=== PATIENT | male | born 1960 | race Two or more races ===

== ENCOUNTER 2025-02-23 13:52 | Inpatient (IN) | payer MEDICAID, SELFPAY ==
[2025-02-23 14:24] VITALS: BP 155/77; PULSE 81; RESP 20; TEMP 37.3; O2SAT 95
--- NOTE | 2025-02-23 15:10 | EDRME_ITS ---
Rapid Medical Screening Exam RME Arrival date/time: 02/23/25 13:52 Chief Complaint: Abdominal Pain Time Seen by Provider: 02/23/25 14:28 Vital signs: Vital Signs Temperature 99.1 F 02/23/25 14:24 Pulse Rate 81 02/23/25 14:24 Respiratory Rate 20 02/23/25 14:24 Blood Pressure 155/77 H 02/23/25 14:24 Pulse Oximetry (%) 95 02/23/25 14:24 Oxygen Delivery Method Room Air 02/23/25 14:24 [facility] Narrative: 64-year-old patient presents emergency department with complaint of left lower abdominal pain for the past year but have worsened in the last 2 days. He denies fever or chills he reports nausea but no vomiting. Moderately distended abdomen noted.
--- NOTE | 2025-02-23 15:12 | XR_ITS ---
Examination: CT abdomen and pelvis without contrast. Coronal 3-D reconstructions. Sagittal 2-D reconstructions. Date and time of exam:February 23, 2025, 1708 hours Comparison August 17, 2022 INDICATIONS: Left lower abdominal pain nausea and vomiting beginning 2 days ago CTDI: vol (mGy): 6.55 DLP: (mGycm): 394 Technique: Axial images of the abdomen have been obtained, 3 mm slice thickness Intravenous contrast material has not been administered. Low dose protocols were performed. One or more of the following dose reduction techniques were used; automated exposure control, adjustment of the mA and/or KV according to patient size, use of iterative reconstruction technique. Findings: Atelectasis versus mild pneumonia right base Cirrhosis, liver nodular in contour Moderate ascites Mild splenomegaly Esophageal varices Retrocardiac gastric hernia Portosystemic collateral vessels medial to the spleen No pancreatic mass Gallbladder is poorly visualized No hydronephrosis Aorta normal size Anasarca No bowel obstruction Normal appendix Urinary bladder wall thickening up to 7 mm Fluid-containing inguinal hernias Moderate osteopenia IMPRESSION: Atelectasis versus pneumonia right base Cirrhosis Moderate ascites Esophageal varices No bowel obstruction Fluid-containing bilateral inguinal hernias
[2025-02-23 16:13] LABS: Basophils # (Auto) 0.0 Thou/mm3 (0.0-0.2); Basophils % (Auto) 0 % (0-2.5); Eosinophils # (Auto) 0.1 Thou/mm3 (0.0-0.5); Eosinophils % (Auto) 2 % (0-10); Hematocrit 37.9 % (41.0-53.0); Hemoglobin 13.0 g/dL (13.5-16.0); Immature Granulocytes Auto 0.03 Thou/mm3 (0.00-0.00); Lymphocytes # (Auto) 1.1 Thou/mm3 (1.0-4.8); Lymphocytes % (Auto) 15 % (10-50); Mean Corpuscular HGB Conc 34.3 g/dl (31.0-37.0); Mean Corpuscular Hemoglobin 36.5 pg (25.0-35.0); Mean Corpuscular Volume 107 fL (80-100); Monocytes # (Auto) 0.6 Thou/mm3 (0.0-0.8); Monocytes % (Auto) 8 % (0-12); Neutrophils # (Auto) 5.4 Thou/mm3 (1.8-7.7); Neutrophils % (Auto) 75 % (37-80); Nucleated Red Blood Cell # 0.00 Thou/mm3 (0.00-0.00); Nucleated Red Blood Cell % 0 /100 WBC (0); RDW Standard Deviation 69.2 fL (35.1-43.9); Red Blood Count 3.56 Miln/mm3 (4.50-5.90); White Blood Count 7.2 Thou/mm3 (3.8-10.6)
[2025-02-23 16:26] LABS: INR 1.9 (0.9-1.3); Prothrombin Time 19.9 Seconds (9.0-12.2)
[2025-02-23 16:36] LABS: Alanine Aminotransferase 41 U/L (10-49); Albumin, Serum 2.3 gm/dL (3.4-4.8); Albumin/Globulin Ratio 0.4 (1.2-2.2); Alkaline Phosphatase 181 U/L (46-116); Anion Gap 6 (7-16); Aspartate Amino Transferase 116 U/L (0-34); BUN/Creatinine Ratio 8 Ratio (12-20); Bilirubin,Total 11.0 mg/dL (0.3-1.2); Blood Urea Nitrogen 6 mg/dL (9-23); Calcium 7.7 mg/dL (8.3-10.6); Calcium (Corrected) 9.1 mg/dL (8.5-10.1); Carbon Dioxide 25.3 mMol/L (20.0-31.0); Chloride 104 mMol/L (98-107); Creatinine (Component) 0.8 mg/dL (0.6-1.3); Globulin 5.4 gm/dL (2.3-3.5); Glucose 134 mg/dL (74-106); Lipase 32 U/L (12-53); Osmolality,Calculated 269 (275-295); Potassium 4.1 mMol/L (3.4-5.1); Sodium 135 mMol/L (136-145); Total Protein 7.7 gm/dL (5.7-8.2); eGFR > 60 See Note
[2025-02-23 16:47] LABS: Platelet Count 39 Thou/mm3 (140-440)
[2025-02-23 16:51] LABS: Path Review Blood Smear Sent to Pathologist; Slide Review Platelets confirmed
[2025-02-23 17:32] LABS: Collection Type, Urine Voided; RBC,Urine 0 /hpf (0-3)
[2025-02-23 17:59] LABS: Bacteria,Urine Rare; Bilirubin,Urine 2+ (Negative); Blood,Urine Negative (Negative); Clarity,Urine Turbid (Clear/Hazy); Color,Urine Drk-Yellow (Lt Yel-Yel); Culture Indicated,Urine Not Indicated; Glucose, Urine Negative (Negative); Ketones,Urine Negative (Negative); Leukocyte Esterase,Urine Negative (Negative); Nitrite,Urine Negative (Negative); PH,Urine 6.5 (5.0-7.0); Protein,Urine Negative (Neg - Trace); Specific Gravity,Urine 1.020 (1.001-1.035); Squamous Epithelial Cell,Urine 1 /hpf (0-5); Urobilinogen,Urine 6.0 mg/dL (0.0-1.0); WBC,Urine < 1 /hpf (0-5)
--- NOTE | 2025-02-23 21:55 | XR_ITS ---
Examination: Abdomen sonogram, Limited Date and time of exam: February 23, 2025 2155 hours INDICATIONS: Abdominal pain beginning 4 days ago Technique: Real-time luciano scale transabdominal sonographic images of the upper abdomen obtained. Findings: Gallbladder sludge No gallstones Gallbladder wall is thickened 0.37 cm There appears to be ascites Normal common bile duct Pancreas obscured by bowel gas Liver 13.4 cm nodular contour Normal hepatopedal portal venous flow Patent IVC IMPRESSION: Cirrhosis Mild ascites Gallbladder wall is thickened which may be secondary to the ascites, consider HIDA scan or MRCP follow-up
--- NOTE | 2025-02-23 21:55 | PC.NURSE ---
no answer when called back for review @2343
--- NOTE | 2025-02-23 21:58 | PD.EDADDENDU ---
Emergency Room Addendum Addendum Narrative: [id number]: I called the patient and informed him he needs to return to the ED for further work-up. Patient stated he will come back in.
--- NOTE | 2025-02-23 22:31 | EDNOTE_ITS ---
ED Abdominal Pain RME/HPI General Chief Complaint: Abdominal Pain Stated complaint: Right side abdominal pain X 4 days Time seen by provider: 02/23/25 14:28 Arrival date/time: 02/23/25 13:52 RME / HPI RME / HPI narrative: 64-year-old patient presents emergency department with complaint of left lower abdominal pain for the past year but have worsened in the last 2 days. He denies fever or chills he reports nausea but no vomiting. Moderately distended abdomen noted. Dr. Jansen?s Main ED Evaluation: 64yo male presents to the ED for a chief complaint of RLQ pain for the last few days. No radiation or migration. Patient states his pain has gotten progressively worse, so he came in for evaluation. Patient denies any fever, chills, N/V/D, shortness of breath or any other associated symptoms. He drinks 12 beers daily. Denies any illicit drug use. NKA. Related Data Allergies Allergy/AdvReac Type Severity Reaction Status Date / Time No Known Allergies Allergy Verified 02/23/25 13:56 Review of Systems Review of Systems Systems Reviewed: All systems reviewed, normal except as documented Past Medical History Social History SMOKING STATUS: Never smoker SUBSTANCE USE: does not use ED Exam Narrative Physical exam: GEN. APPEARANCE: The patient is alert awake oriented X-3 in no distress, lying down comfortably, does not look ill/toxic. Patient has good eye contact. Patient is cooperative. VITALS: All vitals were reviewed and the pulse ox is 95% on room air which is normal according to my interpretation. HEENT: Normocephalic, atraumatic. Pupils are equal and reactive. Oral mucosa is moist. Patent Nares NECK: Supple, nontender, no thyromegaly, no meningismus, no JVD CHEST: Symmetrical, atraumatic, and with equal expansion , Nontender on palpation no deformity and no crepitus. CARDIOVASCULAR: Heart regular rhythm no murmur or gallop rub or extra beats. LUNGS: Clear to auscultation bilaterally with symmetrical chest rise. No laboring tachypnea or wheezing. No intercostal subcostal retraction. No rales and no rhonchi. ABDOMEN: Soft, flat, nontender to palpation, no guarding or rebound tenderness. There are no abnormal masses palpated. Active and normal bowel sounds. EXTREMITIES: Nontender. BLE pitting edema. No cyanosis. Patient is able to move all 4 extremities well, with full ROM and good CSM. SKIN: Warm and dry, no jaundice or rashes noted. NEURO: Patient is SAXENA x 4, Cranial nerves II through XII grossly intact. There is no focal neurologic deficits noted. GCS is 15, PNS and [employer] appear grossly intact. Mild asterixis to the RUE. PSYCHIATRIC: Patient is in normal mood and affect. Course Quality Measures none Orders Category Date Time Status CT abdomen pelvis wo con Stat Exams 02/23/25 15:12 Completed US abdomen limited Stat Exams 02/23/25 21:55 Completed CBC Stat Lab 02/23/25 15:54 Completed CMP [Comprehensive Metabolic Panel] Stat Lab 02/23/25 15:54 Completed Lipase Stat Lab 02/23/25 15:54 Completed PT [Prothrombin Time with INR] Stat Lab 02/23/25 15:54 Completed Path Review Blood Smear Stat Lab 02/23/25 15:54 Completed Urinalysis, C/S if Indicated Stat Lab 02/23/25 17:24 Completed Vital Signs Vital signs: Vital Signs Temperature 99.1 F 02/23/25 14:24 Pulse Rate 81 02/23/25 14:24 Respiratory Rate 20 02/23/25 14:24 Blood Pressure 155/77 H 02/23/25 14:24 Pulse Oximetry (%) 95 02/23/25 14:24 Oxygen Delivery Method Room Air 02/23/25 14:24 Abdominal Pain MDM MDM Narrative MDM Narrative:: Scribe Attestation: 02/23/25 - Luisa Christine am scribing for and in the presence of Dr. Jansen. Patient data External records reviewed:: [facility] previous records (Per chart review, patient was seen here on 08/17/22 for abdominal pain.) Clinical information provided by:: patient Social determinants that could affect healthcare access:: alcohol use Patient has the following chronic illnesses:: none How is presenting disease/condition affected by chronic disease/condition?: no chronic disease Evaluation data The following diagnostics were reviewed and interpreted by me:: lab results and radiology exam(s) Lab and/or radiology exams considered but not ordered:: none Interpretation Summary: CBC normal, PT 19.9, INR 1.9, Total Bilirubin 11.0, Lipase normal. ---- [facility] Report Signed Patient: RIVERA WALKER. Record#: [id number] Birthdate: 1960 Age/Sex: 64 / M Location: [facility] Attending Dr: Ordering Physician: Jessica Jansen MD Date of Service: 02/23/25 Procedure(s): US abdomen limited Accession Number(s): [id number] cc: Shahzad Burns MD; Hermes Thurston MD; Jessica Jansen MD~ Examination: Abdomen sonogram, Limited Date and time of exam: February 23, 2025 2155 hours INDICATIONS: Abdominal pain beginning 4 days ago Technique: Real-time luciano scale transabdominal sonographic images of the upper abdomen obtained. Findings: Gallbladder sludge No gallstones Gallbladder wall is thickened 0.37 cm There appears to be ascites Normal common bile duct Pancreas obscured by bowel gas Liver 13.4 cm nodular contour Normal hepatopedal portal venous flow Patent IVC IMPRESSION: Cirrhosis Mild ascites Gallbladder wall is thickened which may be secondary to the ascites, consider HIDA scan or MRCP follow-up Dictated By: Hermes Thurston MD Signed By: <Electronically signed by Hermes Thurston MD in OV> 02/23/25 2324 [facility] Report Signed Patient: RIVERA WALKER Record#: [id number] Birthdate: 1960 Age/Sex: 64 / M Location: [facility] Attending Dr: Ordering Physician: Alexey Bone PA-C Date of Service: 02/23/25 Procedure(s): CT abdomen pelvis wo con Accession Number(s): [id number] cc: Shahzad Burns MD; Hermes Thurston MD; Alexey Bone PA-C~ Examination: CT abdomen and pelvis without contrast. Coronal 3-D reconstructions. Sagittal 2-D reconstructions. Date and time of exam:February 23, 2025, 1708 hours Comparison August 17, 2022 INDICATIONS: Left lower abdominal pain nausea and vomiting beginning 2 days ago CTDI: vol (mGy): 6.55 DLP: (mGycm): 394 Technique: Axial images of the abdomen have been obtained, 3 mm slice thickness Intravenous contrast material has not been administered. Low dose protocols were performed. One or more of the following dose reduction techniques were used; automated exposure control, adjustment of the mA and/or KV according to patient size, use of iterative reconstruction technique. Findings: Atelectasis versus mild pneumonia right base Cirrhosis, liver nodular in contour Moderate ascites Mild splenomegaly Esophageal varices Retrocardiac gastric hernia Portosystemic collateral vessels medial to the spleen No pancreatic mass Gallbladder is poorly visualized No hydronephrosis Aorta normal size Anasarca No bowel obstruction Normal appendix Urinary bladder wall thickening up to 7 mm Fluid-containing inguinal hernias Moderate osteopenia IMPRESSION: Atelectasis versus pneumonia right base Cirrhosis Moderate ascites Esophageal varices No bowel obstruction Fluid-containing bilateral inguinal hernias Dictated By: Hermes Thurston MD Signed By: <Electronically signed by Hermes Thurston MD in OV> 02/23/25 1738 Medications / Prescriptions Medications or Prescriptions considered but not ordered:: none Medication administrations:: none Consultations Consultation(s) initiated? (list below): Yes Consultation #1 (Physician, Specialty, Details): Discussed case with the resident physician, attending Dr. Park from Hospitalist service regarding admission. Discussed patients ED course, exam findings, labs, and radiology results. The Hospitalist agrees to accept the patient for admission. Time: 00:01 Diagnosis Differential diagnosis abdominal pain: pancreatitis and other (liver failure, cholelithiasis, cholecystitis, UTI, CHF) Most likely diagnosis given after review of the tests above:: see clinical impression below Admission Indicated Admission indicated?: indicated Admission Request Was there a request for admission?: Yes Admission Attestation Admission request attestation: Discussed case with [] from Hospitalist service regarding admission. Discussed patients ED course, exam findings, labs, and radiology results. The Hospitalist [agrees,declines] to accept the patient for admission. Disposition Plan Disposition Plan: Admit Critical Care Time Critical Care Time Critical Care Time: Yes Total Critical Care Time (min.): 35 Attestation: The high probability of sudden, clinically significant deterioration in the patient?s condition required the highest level of my preparedness to intervene urgently. The services I provided to this patient were to treat and/or prevent clinically significant deterioration. Services included the following: chart data review, reviewing nursing notes and/or old charts, documentation time, lifestyle consultant collaboration regarding findings and treatment options, medication orders and management, direct patient care, vital sign assessments and ordering, interpreting and reviewing diagnostic studies and lab tests. Aggregate critical care time includes only time during which I was engaged in work directly related to the patient?s care, as described above, whether at bedside or elsewhere in the Emergency Department. It did not include time spent performing other reported procedures or the services of residents, students, nurses or physician assistants. Discharge Plan Plan Patient Disposition: Admit Acute Care w/in Hospital Prescriptions/Referrals Referrals: Shahzad Burns MD [Primary Care Provider] - In 1 week Problem List Clinical Impression: Hyperbilirubinemia, End-stage liver disease Patient/Caregiver Discharge Instructions Print Language: [place] Stand Alone Forms: Masha Award Info., Patient Portal Info Letter
[2025-02-23 22:35] VITALS: BP 147/73; PULSE 89; RESP 17; TEMP 37.2; O2SAT 96
[2025-02-24] VITALS (16 sets, daily range): BP systolic 101–144; BP diastolic 60–87; PULSE 67–98; RESP 11–20; TEMP 36.2–37; O2SAT 95–98; BMI 26.2
--- NOTE | 2025-02-24 00:44 | PD.RESHP ---
Documentation for date of: 02/24/25 HPI History of Present Illness Chief complaint: abd pain History of present illness: 64-year-old male with past medical history of alcohol use disorder and cirrhosis was admitted to the hospital 02/24/2025 after coming to the ED with chief complaints of abdominal pain. Patient stated that his abdominal pain started around 4 days ago and was mostly localized to the right upper quadrant. Patient denied having any nausea, vomiting, changes in bowel movements, or any blood in the stool. Patient also denied having any chest pain, shortness of breath, or any sensations urination, or confusion as of recently. Patient stated that he has known that he had cirrhosis in the past and he saw a GI specialist only once around 3 years ago, but never follow-up again. Patient has been taking spironolactone 100 mg daily, but no other medication at this time. Patient stated that he has been drinking 4 beers a day for quite some time and that his last drink was around 3 days ago. Patient also stated that he has never had an endoscopy or colonoscopy either. He stated that his lower extremity has been swelling as of more recently and that is why he is takes the diuretic. No other complaint at this time. ED course: Initially came in hypertensive and afebrile. Initial labs were relevant for coagulopathy, hyperbilirubinemia, transaminitis, hypoalbuminemia, and UA is positive for bacteria. Initial imaging included abdomen/pelvis CT which showed atelectasis versus pneumonia of right base, cirrhosis, esophageal varices, moderate ascites, and some fluid containing bilateral inguinal hernias. Patient also underwent abdominal ultrasound which showed cirrhosis, ascites, and some gallbladder wall thickening. PMH: As above Social Hx: Denies smoking or any illicit drugs, admits alcohol use as stated above Surgical Hx: Left ankle surgery Allergies: NKDA Medications: Spironolactone 100 mg daily Review of Systems Review of Systems Systems Reviewed: All systems reviewed, normal except as documented Exam Vital Signs Temp Pulse Resp BP Pulse Ox O2 Del Method 98.5 F 79 18 130/71 96 Room Air 02/24/25 00:23 02/24/25 00:23 02/24/25 00:23 02/24/25 00:23 02/24/25 00:02/24/25 00:23 Narrative Exam General: A/O x3, no acute distress Eyes: PERRL, EOMI. icteric, vision grossly intact. Ears: No ear pain, no ear discharge, Hearing grossly intact. Nose: No nasal discharge. Mouth/Throat: Moist mucous membranes, poor dentation, no redness, no lesions. Neck: Neck supple, non-tender, no cervical lymphadenopathy. Lungs: Clear SAV to auscultation and percussion, No accessory muscle use. Cardio: Normal S1/S2, regular rhythm, no murmurs, no JVD Abdomen: Soft, but distended, non-tender no palpable masses, peristalsis present, no guarding or rebound. Extremities: Symmetrical, no significant deformities, 2+ pitting edema , non-tender, peripheral pulses difficult to palpate due to edema. Skin: No rashes, no lesions, warm to touch. Neuro: No focal neurological deficits. motor and sensory intact Psych: Cooperative, appropriate mood and effect. Results: Labs 02/23/25 15:54 02/23/25 15:54 Labs: Short CBC 02/23/25 Range/Units 15:54 WBC 7.2 (3.8-10.6) Thou/mm3 Hgb 13.0 L (13.5-16.0) g/dL Hct 37.9 L (41.0-53.0) % Plt Count 39 L (140-440) Thou/mm3 BMP 02/23/25 15:54 Sodium 135 L Potassium 4.1 Chloride 104 Carbon Dioxide 25.3 BUN 6 L Creatinine 0.8 Glucose 134 H Calcium 7.7 L Liver Function 02/23/25 Range/Units 15:54 Total Bilirubin 11.0 H (0.3-1.2) mg/dL AST 116 H (0-34) U/L ALT 41 (10-49) U/L Alkaline Phosphatase 181 H (46-116) U/L Albumin 2.3 L (3.4-4.8) gm/dL Urine 02/23/25 Range/Units 17:24 Urine Color Drk-Yellow A (Lt Yel-Yel) Urine Clarity Turbid A (Clear/Hazy) Urine pH 6.5 (5.0-7.0) Ur Specific Carroll 1.020 (1.001-1.035) Urine Protein Negative (Neg - Trace) Urine Glucose (UA) Negative (Negative) Quality Measures Quality Measures none Medications Home Medications and Allergies Allergies Allergy/AdvReac Type Severity Reaction Status Date / Time No Known Allergies Allergy Verified 02/23/25 13:56 Visit Medications Acetaminophen (Acetaminophen 325 Mg Tablet) 650 mg PO Q6H PRN PRN Reason: Fever >100.4 Stop: 03/26/25 00:33 Acetaminophen (Acetaminophen 325 Mg Tablet) 650 mg PO Q6H PRN PRN Reason: PAIN SCALE 1-3 (mild Stop: 03/26/25 00:33 Hydrocodone Bitart/Acetaminophen (Hydrocodone/Apap 5/325 Tablet) 1 tab PO Q4HR PRN PRN Reason: PAIN SCALE 4-6 (Moderate Stop: 03/01/25 00:33 Folic Acid (Folic Acid 1 Mg Tablet) 1 mg PO BID [facility] Stop: 03/01/25 08:59 Furosemide (Furosemide 40 Mg Tablet) 40 mg PO QDAY [facility] Stop: 03/26/25 08:59 Ceftriaxone Sodium/Dextrose (Rocephin/D5w 1gm Iv Premix) 1 gm in 50 mls @ 100 mls/hr IV QDAY [facility] Stop: 03/03/25 00:38 Lorazepam (Lorazepam 0.5 Mg Tablet) 0.5 mg PO Q4HR PRN PRN Reason: CIWA Score 2-6 Stop: 03/01/25 00:33 Lorazepam (Lorazepam 0.5 Mg Tablet) 1 mg PO Q4HR PRN PRN Reason: CIWA SCORE 7-11 Stop: 03/01/25 00:33 Lorazepam (Lorazepam 0.5 Mg Tablet) 2 mg PO Q4HR PRN PRN Reason: CIWA SCORE 12-15 Stop: 03/01/25 00:33 Ondansetron HCl (Ondansetron Inj 2 Mg/Ml Inj 2 Ml) 4 mg IVP Q6H PRN; Protocol PRN Reason: NAUSEA OR VOMITING Stop: 03/26/25 00:33 Pantoprazole Sodium (Pantoprazole Inj 40 Mg Vial) 40 mg IVP QDAY [facility] Stop: 03/26/25 08:59 Spironolactone (Spironolactone 25 Mg Tablet) 100 mg PO QDAY [facility] Stop: 03/26/25 08:59 Thiamine HCl (Thiamine 100 Mg Tablet) 100 mg PO BID [facility] Stop: 03/01/25 08:59 Assessment & Plan Plan 64-year-old male with past medical history of alcohol use disorder and cirrhosis was admitted to the hospital 02/24/2025 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 #Alcohol associated liver cirrhosis #Decompensated liver cirrhosis #Hyperbilirubinemia #Hypoalbuminemia #Transaminitis #Coagulopathy #Esophageal varices Patient came initially with complaints of right upper quadrant abdominal pain for the past 3 days. Patient stated that his last drink was 3 days ago. Patient has been drinking around 4 beers per day every day for quite some time now. Patient lab work showed INR of 1.9, albumin 2.3, T bilirubin 11, and AST 116 and ALP 181. Abdomen/pelvis CT which showed atelectasis versus pneumonia of right base, cirrhosis, esophageal varices, moderate ascites, and some fluid containing bilateral inguinal hernias Abdominal ultrasound which showed cirrhosis, ascites, and some gallbladder wall thickening Consider biliary dyskinesia versus acute cholecystitis Child Flanagan score of 12 points indicating child class C MELD-Na score of 25 points indicating 14 to 50% estimated 90-day mortality Plan: Spironolactone 100 mg and Lasix 40 mg p.o. daily Ceftriaxone 1 g daily for SBP prophylaxis Protonix GI consulted, appreciate recommendations U-Tox and alcohol levels ordered Consider HIDA scan for further evaluation for biliary dyskinesia versus acute cholecystitis #Alcohol withdrawal #Hx of alcohol use disorder Patient has been drinking around 40 beers per day for quite some time Last drink was around 3 days ago CIWA was 4 on assessment Plan: Ciwa protocol Disposition: Patient admitted to med surg for alcohol withdrawal and decompensated liver cirrhosis. Diet: NPO for possible EGD GI prophylaxis: protonix DVT prophylaxis: SCDs Code: Full Case disclosed with Attending Dr. Rossy Fisher PGY1 Disclaimer: Even though this this note was dictated by speech recognition and even though it was carefully revised there may still be minor errors in agricultural consultant due to voice recognition software. Attending Provider Attestation/Addendum Patient with alcoholic liver cirrhosis and ascites. Patient was admitted for abdominal pain and distention. He is afebrile. He answers appropriately and follows commands. Patient has hyperbilirubinemia, coagulopathy, check ammonia level. He does not have tremors nor asterixis. No GI bleed reported. patient will be admitted for further evaluation and management. I discussed with and supervised the resident physician who took care of this patient. I agree with the assessment and plan as above.
[2025-02-24] MEDS: cefTRIAXone/D5w 1gm IV premix 1 GM/50 ML BAG IV ×2 (01:42→09:14)
[2025-02-24 05:53] LABS: Basophils # (Auto) 0.0 Thou/mm3 (0.0-0.2); Basophils % (Auto) 1 % (0-2.5); Eosinophils # (Auto) 0.2 Thou/mm3 (0.0-0.5); Eosinophils % (Auto) 3 % (0-10); Hematocrit 34.4 % (41.0-53.0); Hemoglobin 11.7 g/dL (13.5-16.0); Immature Granulocytes Auto 0.02 Thou/mm3 (0.00-0.00); Lymphocytes # (Auto) 0.9 Thou/mm3 (1.0-4.8); Lymphocytes % (Auto) 15 % (10-50); Mean Corpuscular HGB Conc 34.0 g/dl (31.0-37.0); Mean Corpuscular Hemoglobin 36.0 pg (25.0-35.0); Mean Corpuscular Volume 106 fL (80-100); Monocytes # (Auto) 0.8 Thou/mm3 (0.0-0.8); Monocytes % (Auto) 13 % (0-12); Neutrophils # (Auto) 4.1 Thou/mm3 (1.8-7.7); Neutrophils % (Auto) 69 % (37-80); Nucleated Red Blood Cell # 0.00 Thou/mm3 (0.00-0.00); Nucleated Red Blood Cell % 0 /100 WBC (0); RDW Standard Deviation 69.0 fL (35.1-43.9); Red Blood Count 3.25 Miln/mm3 (4.50-5.90); White Blood Count 6.0 Thou/mm3 (3.8-10.6)
[2025-02-24 05:54] LABS: Platelet Count 44 Thou/mm3 (140-440)
[2025-02-24 06:27] LABS: Alanine Aminotransferase 33 U/L (10-49); Albumin, Serum 2.0 gm/dL (3.4-4.8); Albumin/Globulin Ratio 0.4 (1.2-2.2); Alkaline Phosphatase 152 U/L (46-116); Anion Gap 5 (7-16); Aspartate Amino Transferase 87 U/L (0-34); BUN/Creatinine Ratio 10 Ratio (12-20); Bilirubin,Total 9.2 mg/dL (0.3-1.2); Blood Urea Nitrogen 5 mg/dL (9-23); Calcium 7.5 mg/dL (8.3-10.6); Calcium (Corrected) 9.1 mg/dL (8.5-10.1); Carbon Dioxide 24.8 mMol/L (20.0-31.0); Chloride 107 mMol/L (98-107); Creatinine (Component) 0.5 mg/dL (0.6-1.3); Estimated Creatinine Clearance 144.4 mL/min (>60); Globulin 4.6 gm/dL (2.3-3.5); Glucose 84 mg/dL (74-106); Magnesium 1.8 mg/dL (1.6-2.6); Osmolality,Calculated 270 (275-295); Potassium 3.8 mMol/L (3.4-5.1); Sodium 137 mMol/L (136-145); Total Protein 6.6 gm/dL (5.7-8.2); eGFR > 60 See Note
[2025-02-24 07:03] LABS: Hepatitis A Antibody IgM Non Reactive (Non React); Hepatitis B Core Antibody IgM Non Reactive (Non React); Hepatitis B Surface Antigen Non Reactive (Non React); Hepatitis C Antibody Non Reactive (Non React)
[2025-02-24 07:37] LABS: Alcohol, Urine Negative (Negative); Amphetamine/Methamp Scrn,U Negative (Negative); Barbiturate Screen,Urine Negative (Negative); Benzodiazepines Screen,Urine Negative (Negative); Benzoylecgonine Screen, Ur Negative (Negative); Fentanyl Screen,Urine Negative (Negative); Opiate Screen,Urine Negative (Negative); THC Screen,Urine Negative (Negative)
[2025-02-24] MEDS: THIAMINE 100 MG TABLET PO ×2 (09:14→21:16)
[2025-02-24] MEDS: FOLIC ACID 1 MG TABLET PO ×2 (09:14→21:16)
[2025-02-24] MEDS: SPIRONOLACTONE 25 MG TABLET 100 MG PO (09:14)
[2025-02-24 09:48] LABS: Slide Review Platelets confirmed
--- NOTE | 2025-02-24 11:48 | XR_ITS ---
Examination: Abdomen sonogram, Limited Date and time of exam: February 24, 2025 1356 hours INDICATIONS: Cirrhosis increasing abdominal distention this week Technique: Real-time luciano scale transabdominal sonographic images of the upper abdomen obtained. Findings: Minimal ascitic fluid IMPRESSION: Minimal ascitic fluid
--- NOTE | 2025-02-24 15:09 | XR_ITS ---
Examination: Nuclear medicine hepatobiliary scan, static HIDA scan Date of exam: February 24, 2025, 1547 hours INDICATIONS: Cirrhosis, abdominal pain beginning 4 days ago, elevated total bilirubin liver function tests and alkaline phosphatase Technique And Findings: 6.0 mCi 99m Hepatolite administered intravenously. Limited study, the patient refused the hida scan after 10 minutes Liver activity No common bile duct small bowel or gallbladder activity IMPRESSION: Incomplete study
--- NOTE | 2025-02-24 15:13 | PD.RESPRO ---
Documentation for date of: 02/24/25 Subjective Subjective Interval history: No acute overnight events. Abdominal pain relatively controlled. Reports feeling nauseous but denies any vomiting episodes. Denies fever, chills, headaches, chest pain, sob, cough, GI or urinary symptoms. Hgb 11.7 and slightly downtrending. EGD was done today with banding of grade 3 esophageal varices, continued on clear liquid diet. Exam Vital Signs Temp Pulse Resp BP Pulse Ox O2 Del Method 97.5 F 71 18 115/76 96 Room Air 02/24/25 11:44 02/24/25 11:44 02/24/25 11:44 02/24/25 11:44 02/24/25 11:44 02/24/25 11:44 Narrative Exam General: A/O x3, no acute distress Eyes: PERRL, EOMI. icteric, vision grossly intact. Ears: No ear pain, no ear discharge, Hearing grossly intact. Nose: No nasal discharge. Mouth/Throat: Moist mucous membranes, poor dentation, no redness, no lesions. Neck: Neck supple, non-tender, no cervical lymphadenopathy. Lungs: Clear SAV to auscultation and percussion, No accessory muscle use. Cardio: Normal S1/S2, regular rhythm, no murmurs, no JVD Abdomen: Soft, but distended, non-tender no palpable masses, peristalsis present, no guarding or rebound. Extremities: Symmetrical, no significant deformities, 2+ pitting edema extending up to the hip, non-tender, peripheral pulses difficult to palpate due to edema. Skin: No rashes, no lesions, warm to touch. Neuro: No focal neurological deficits. motor and sensory intact Psych: Cooperative, appropriate mood and effect. Objective Labs 02/26/25 05:33 02/26/25 05:33 Labs: Laboratory Results - last 24 hr 02/23/25 02/23/25 02/24/25 15:54 17:24 04:57 WBC 7.2 6.0 RBC 3.56 L 3.25 L Hgb 13.0 L 11.7 L Hct 37.9 L 34.4 L MCV 107 H 106 H MCH 36.5 H 36.0 H MCHC 34.3 34.0 RDW Std Deviation 69.2 H 69.0 H Plt Count 39 L 44 L Neut % (Auto) 75 69 Lymph % (Auto) 15 15 [place] % (Auto) 8 13 H Eos % (Auto) 2 3 Baso % (Auto) 0 1 Neut # (Auto) 5.4 4.1 Lymph # (Auto) 1.1 0.9 L [place] # (Auto) 0.6 0.8 Eos # (Auto) 0.1 0.2 Baso # (Auto) 0.0 0.0 Immature Gran # (Auto) 0.03 H 0.02 H Absolute Nucleated RBC 0.00 0.00 Immature Gran % 0 0 Nucleated RBC % 0 0 Smear Path Review Sent to Pathologist PT 19.9 H INR 1.9 H Sodium 135 L 137 Potassium 4.1 3.8 Chloride 104 107 Carbon Dioxide 25.3 24.8 Anion Gap 6 L 5 L BUN 6 L 5 L Creatinine 0.8 0.5 L Estim Creat Clear Calc Not Performed. 144.4 eGFR > 60 > 60 BUN/Creatinine Ratio 8 L 10 L Glucose 134 H 84 D Calculated Osmolality 269 L 270 L Calcium 7.7 L 7.5 L Corrected Calcium 9.1 9.1 Magnesium 1.8 Total Bilirubin 11.0 H 9.2 H D AST 116 H 87 H ALT 41 33 Alkaline Phosphatase 181 H 152 H D Total Protein 7.7 6.6 Albumin 2.3 L 2.0 L Globulin 5.4 H 4.6 H Albumin/Globulin Ratio 0.4 L 0.4 L Lipase 32 Ur Collection Type Voided Urine Color Drk-Yellow A Urine Clarity Turbid A Urine pH 6.5 Ur Specific [place] 1.020 Urine Protein Negative Urine Glucose (UA) Negative Urine Ketones Negative Urine Blood Negative Urine Nitrite Negative Urine Bilirubin 2+ A Urine Urobilinogen (Auto) 6.0 Ur Leukocyte Esterase Negative Urine RBC 0 Urine WBC < 1 Ur Squamous Epith Cells 1 Urine Bacteria Rare Ur Culture Indicated? Not Indicated Urine Opiates Screen Urine Fentanyl Screen Ur Barbiturates Screen U Amphetamin/Meth Scrn U Benzodiazepines Scrn U Cocaine Metab Screen U Marijuana (THC) Screen Urine Alcohol Hepatitis A IgM Ab Non Reactive Hep Bs Antigen Non Reactive Hep B Core IgM Ab Non Reactive Hepatitis C Antibody Non Reactive Misc Test Result Platelets confirmed Platelets confirmed 02/24/25 06:50 WBC RBC Hgb Hct MCV MCH MCHC RDW Std Deviation Plt Count Neut % (Auto) Lymph % (Auto) [place] % (Auto) Eos % (Auto) Baso % (Auto) Neut # (Auto) Lymph # (Auto) [place] # (Auto) Eos # (Auto) Baso # (Auto) Immature Gran # (Auto) Absolute Nucleated RBC Immature Gran % Nucleated RBC % Smear Path Review PT INR Sodium Potassium Chloride Carbon Dioxide Anion Gap BUN Creatinine Estim Creat Clear Calc eGFR BUN/Creatinine Ratio Glucose Calculated Osmolality Calcium Corrected Calcium Magnesium Total Bilirubin AST ALT Alkaline Phosphatase Total Protein Albumin Globulin Albumin/Globulin Ratio Lipase Ur Collection Type Urine Color Urine Clarity Urine pH Ur Specific [place] Urine Protein Urine Glucose (UA) Urine Ketones Urine Blood Urine Nitrite Urine Bilirubin Urine Urobilinogen (Auto) Ur Leukocyte Esterase Urine RBC Urine WBC Ur Squamous Epith Cells Urine Bacteria Ur Culture Indicated? Urine Opiates Screen Negative Urine Fentanyl Screen Negative Ur Barbiturates Screen Negative U Amphetamin/Meth Scrn Negative U Benzodiazepines Scrn Negative U Cocaine Metab Screen Negative U Marijuana (THC) Screen Negative Urine Alcohol Negative Hepatitis A IgM Ab Hep Bs Antigen Hep B Core IgM Ab Hepatitis C Antibody Misc Test Result Quality Measures Quality Measures none Assessment & Plan Assessment Current Active Medications: Generic Name Dose Route Start Last Admin Trade Name Freq PRN Reason Stop Dose Admin Acetaminophen 650 mg 02/24/25 00:34 Acetaminophen 325 Mg Tablet PO 03/26/25 00:33 Q6H PRN Fever >100.4 Acetaminophen 650 mg 02/24/25 00:34 Acetaminophen 325 Mg Tablet PO 03/26/25 00:33 Q6H PRN PAIN SCALE 1-3 (mild Hydrocodone Bitart/Acetaminophen 1 tab 02/24/25 00:34 Hydrocodone/Apap 5/325 Tablet PO 03/01/25 00:33 Q4HR PRN PAIN SCALE 4-6 (Moderate Folic Acid 1 mg 02/24/25 09:00 02/24/25 09:14 Folic Acid 1 Mg Tablet PO 03/01/25 08:59 1 mg BID GIOVANNA Administration Furosemide 40 mg 02/24/25 09:00 02/24/25 09:14 Furosemide 40 Mg Tablet PO 03/26/25 08:59 40 mg QDAY GIOVANNA Administration Ceftriaxone Sodium/Dextrose 1 gm in 50 mls @ 100 mls/hr 02/24/25 00:39 02/24/25 09:14 Rocephin/D5w 1gm Iv Premix IV 03/03/25 00:38 100 mls/hr QDAY GIOVANNA Administration Lorazepam 0.5 mg 02/24/25 00:34 Lorazepam 0.5 Mg Tablet PO 03/01/25 00:33 Q4HR PRN CIWA Score 2-6 Lorazepam 1 mg 02/24/25 00:34 Lorazepam 0.5 Mg Tablet PO 03/01/25 00:33 Q4HR PRN CIWA SCORE 7-11 Lorazepam 2 mg 02/24/25 00:34 Lorazepam 0.5 Mg Tablet PO 03/01/25 00:33 Q4HR PRN CIWA SCORE 12-15 Ondansetron HCl 4 mg 02/24/25 00:34 Ondansetron Inj 2 Mg/Ml Inj 2 Ml IVP 03/26/25 00:33 Q6H PRN NAUSEA OR VOMITING Protocol Pantoprazole Sodium 40 mg 02/24/25 09:00 02/24/25 09:13 Pantoprazole Inj 40 Mg Vial IVP 03/26/25 08:59 40 mg QDAY GIOVANNA Administration Spironolactone 100 mg 02/24/25 09:00 02/24/25 09:14 Spironolactone 25 Mg Tablet PO 03/26/25 08:59 100 mg QDAY GIOVANNA Administration Thiamine HCl 100 mg 02/24/25 09:00 02/24/25 09:14 Thiamine 100 Mg Tablet PO 03/01/25 08:59 100 mg BID GIOVANNA Administration Plan This is a 64-year-old male with past medical history of alcohol use disorder and cirrhosis was admitted to the hospital 02/24/2025 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 Alcohol associated liver cirrhosis Decompensated liver cirrhosis Hyperbilirubinemia Hypoalbuminemia Transaminitis Coagulopathy Esophageal varices Presenting with 3 days of worsening right upper quadrant pain. History of chronic alcohol use, last drink 3 days prior to admission. Labs significant for elevated INR 1.9, hypoalbuminemia, TB 11, and mildly elevated bated LFTs and ALP. Significant anasarcous on exam. CT abdominal pelvis showed cirrhosis, esophageal varices, moderate ascites, and fluid containing bilateral inguinal hernia. Abdominal ultrasound showed cirrhosis and ascites and some gallbladder wall thickening likely in settings of ascites. Child Flanagan score of 12 points indicating child class C. MELD-Na score of 25 points indicating 14 to 50% estimated 90-day mortality. He underwent EGD with banding of grade 3 esophageal varices, EGD also showed distal esophagitis. Currently on clear liquids, will advance as tolerated. MRCP was ordered to evaluate biliary function, however was incomplete secondary to agitation. Radiology recommended 2 days washout before repeating MRCP. Proceed with HIDA scan and consider surgical consult as indicated. Remains afebrile, no leukocytosis. ? Continue home SPIRONOLACTONE 100 mg daily ? Continue LASIX 40 mg daily ? Continue CEFTRIAXONE 1 g daily for SBP prophylaxis ? Continue PROTONIX BID ? Pending HIDA scan results Alcohol withdrawal Hx of alcohol use disorder Patient has been drinking around 40 beers per day for quite some time. Last drink was around 3 days ago. U-Tox negative for alcohol. CIWA remains low ? Continue CIWA protocol Health maintenance Diet: Clear liquid GI prophylaxis: PROTONIX DVT prophylaxis: SCD Antibiotics: CEFTRIAXONE CODE STATUS: Full code Disposition: Pending HIDA scan, possible surgical consult. Case was discussed with attending physician and senior resident. Taran Rodriguez DO PGY II This document was transcribed using voice recognition technology. Minor inaccuracies may be present. Attending Provider Attestation/Addendum I attest that I was physically present for the evaluation, physical examination, lab and imaging review of the patient with the residents. I discussed the case with the residents and agree with the findings and plans of care as documented above. Trina Grover MD
--- NOTE | 2025-02-24 18:04 | PD.IMCONS ---
HPI Data of Consult Requesting Physician: Jhony Blair MD Primary Care Provider: Shahzad Burns MD Consult Narrative Reason for consult: Pain abdomen, abnormal CT scan of the abdomen pelvis, abnormal LFTs History of present illness: 64 years old male comes in for evaluation to the emergency room for abdominal pain progressively getting worse for the last 4 days Location was lower abdomen No nausea vomiting No hematemesis melena or hematochezia Patient consumes alcohol moderately and the CT scan of the abdomen pelvis showed without contrast mild to moderate ascites cirrhosis liver increased portosystemic collaterals with possible esophageal varices Abdominal ultrasound showed minimal ascites HIDA scan patient refused after about 10 minutes of the procedure and the HIDA scan was abandoned cc:: cc: Jhony Blair MD Review of Systems Review of Systems Systems Reviewed: All systems reviewed, normal except as documented Past Medical History Surgical History OTHER SURGICAL HX: As in the history of present illness Meds Home Medications and Allergies Home Medications ?Medication ?Instructions ?Recorded ?Confirmed ?Type loratadine 10 mg tablet 10 mg PO DAILY 02/24/25 02/24/25 History tobramycin 0.3 % eye drops 1 drp Both eyes Q4H 02/24/25 02/24/25 History Allergies Allergy/AdvReac Type Severity Reaction Status Date / Time No Known Allergies Allergy Verified 02/23/25 13:56 Exam Vital Signs Temp Pulse Resp BP Pulse Ox O2 Del Method 97.2 F 74 19 120/60 96 Room Air 02/24/25 16:00 02/24/25 16:00 02/24/25 16:00 02/24/25 16:00 02/24/25 16:00 02/24/25 16:00 Constitutional Comments: Chronically ill-appearing Routine Respiratory Exam Comments: Normal to auscultation Routine Abdominal Exam Comments: Minimal tenderness positive bowel sounds Results Labs 02/24/25 04:57 02/24/25 04:57 Labs: Short CBC 02/24/25 Range/Units 04:57 WBC 6.0 (3.8-10.6) Thou/mm3 Hgb 11.7 L (13.5-16.0) g/dL Hct 34.4 L (41.0-53.0) % Plt Count 44 L (140-440) Thou/mm3 BMP 02/24/25 04:57 Sodium 137 Potassium 3.8 Chloride 107 Carbon Dioxide 24.8 BUN 5 L Creatinine 0.5 L Glucose 84 D Calcium 7.5 L Liver Function 02/24/25 Range/Units 04:57 Total Bilirubin 9.2 H D (0.3-1.2) mg/dL AST 87 H (0-34) U/L ALT 33 (10-49) U/L Alkaline Phosphatase 152 H D (46-116) U/L Albumin 2.0 L (3.4-4.8) gm/dL Urine 02/23/25 Range/Units 17:24 Urine Color Drk-Yellow A (Lt Yel-Yel) Urine Clarity Turbid A (Clear/Hazy) Urine pH 6.5 (5.0-7.0) Ur Specific [place] 1.020 (1.001-1.035) Urine Protein Negative (Neg - Trace) Urine Glucose (UA) Negative (Negative) Assessment and Plan Additional Assessment & Plan Additional Plan: # Pain abdomen uncertain etiology in the setting of cirrhotic liver disease due to underlying alcohol esophageal varices minimal ascites And an incomplete HIDA scan Plan Keep patient n.p.o. Consent obtained for fiberoptic esophagogastroduodenoscopy with possible therapeutic intervention under intravenous moderate sedation possible biopsies We will proceed with the procedure Not much seen on the CAT scan in the right lower quadrant Might consider doing a fibrotic colonoscopy prior to discharge to further evaluate the right lower quadrant abdominal pain and discomfort Complete abstinence from the alcohol Thank you very much for the opportunity to participate in the care of this patient
--- NOTE | 2025-02-24 20:13 | PC.NURSE ---
pt back from endoscopy, pt looked disoriented and his mumbling/talking to himself, pt A&O x4, answers questions properly.
[2025-02-25] VITALS (9 sets, daily range): BP systolic 113–133; BP diastolic 66–82; PULSE 63–82; RESP 17–98; TEMP 36.3–36.6; O2SAT 93–97
--- NOTE | 2025-02-25 | XR_ITS ---
MRI abdomen, without contrast. MRCP Date and time of exam: February 25, 2025, 1528 hours INDICATIONS: Left lower abdominal pain nausea beginning 2 days ago Technique: Multiple axial and coronal images of the abdomen have been obtained with the Siemens 1.5T MRI scanner. Images obtained included T1 weighted transverse images, T2-weighted transverse images, T2-weighted transverse images fat-suppressed, T2 weighted haste fat suppressed transverse images, T1 weighted images, in and out of phase images, T2-weighted coronal images, breath hold, T2 weighted haze coronal images as well as T2 weighted coronal thick slab images, MRCP. Findings: Cirrhosis, liver is irregular in contour. Moderate ascites. Significant splenomegaly, 16 cm Contracted gallbladder, no definite stones Minimal thickening of the gallbladder wall, however this is likely secondary to the patient's ascites No pancreatic mass No hydronephrosis Aorta normal size. No bowel obstruction No comminuted bilateral common bile duct stones, normal caliber common hepatic common bile duct IMPRESSION: Cirrhosis Moderate ascites. Prominent splenomegaly No gallstones identified Normal common hepatic common bile duct
[2025-02-25 06:16] LABS: Basophils # (Auto) 0.1 Thou/mm3 (0.0-0.2); Basophils % (Auto) 1 % (0-2.5); Eosinophils # (Auto) 0.2 Thou/mm3 (0.0-0.5); Eosinophils % (Auto) 4 % (0-10); Hematocrit 33.0 % (41.0-53.0); Hemoglobin 11.5 g/dL (13.5-16.0); Immature Granulocytes Auto 0.03 Thou/mm3 (0.00-0.00); Lymphocytes # (Auto) 1.1 Thou/mm3 (1.0-4.8); Lymphocytes % (Auto) 20 % (10-50); Mean Corpuscular HGB Conc 34.8 g/dl (31.0-37.0); Mean Corpuscular Hemoglobin 36.5 pg (25.0-35.0); Mean Corpuscular Volume 105 fL (80-100); Monocytes # (Auto) 0.7 Thou/mm3 (0.0-0.8); Monocytes % (Auto) 13 % (0-12); Neutrophils # (Auto) 3.5 Thou/mm3 (1.8-7.7); Neutrophils % (Auto) 62 % (37-80); Nucleated Red Blood Cell # 0.00 Thou/mm3 (0.00-0.00); Nucleated Red Blood Cell % 0 /100 WBC (0); RDW Standard Deviation 68.0 fL (35.1-43.9); Red Blood Count 3.15 Miln/mm3 (4.50-5.90); White Blood Count 5.6 Thou/mm3 (3.8-10.6)
[2025-02-25 06:27] LABS: Platelet Count 43 Thou/mm3 (140-440)
[2025-02-25 06:49] LABS: INR 2.0 (0.9-1.3); Partial Thromboplastin Time 44.2 Seconds (22.0-36.0); Prothrombin Time 20.9 Seconds (9.0-12.2)
[2025-02-25 07:17] LABS: Alanine Aminotransferase 29 U/L (10-49); Albumin, Serum 2.0 gm/dL (3.4-4.8); Albumin/Globulin Ratio 0.4 (1.2-2.2); Alkaline Phosphatase 126 U/L (46-116); Anion Gap 6 (7-16); Aspartate Amino Transferase 73 U/L (0-34); BUN/Creatinine Ratio 12 Ratio (12-20); Bilirubin,Total 9.4 mg/dL (0.3-1.2); Blood Urea Nitrogen 7 mg/dL (9-23); Calcium 7.6 mg/dL (8.3-10.6); Calcium (Corrected) 9.2 mg/dL (8.5-10.1); Carbon Dioxide 25.0 mMol/L (20.0-31.0); Chloride 107 mMol/L (98-107); Creatinine (Component) 0.6 mg/dL (0.6-1.3); Estimated Creatinine Clearance 120.3 mL/min (>60); Globulin 4.6 gm/dL (2.3-3.5); Glucose 80 mg/dL (74-106); Magnesium 1.7 mg/dL (1.6-2.6); Osmolality,Calculated 272 (275-295); Potassium 3.6 mMol/L (3.4-5.1); Sodium 138 mMol/L (136-145); Total Protein 6.6 gm/dL (5.7-8.2); eGFR > 60 See Note
[2025-02-25 07:59] LABS: Slide Review Platelets confirmed
[2025-02-25] MEDS: THIAMINE 100 MG TABLET PO ×2 (09:07→20:34)
[2025-02-25] MEDS: FOLIC ACID 1 MG TABLET PO ×2 (09:07→20:34)
[2025-02-25] MEDS: cefTRIAXone/D5w 1gm IV premix 1 GM/50 ML BAG IV (09:08)
[2025-02-25] MEDS: SPIRONOLACTONE 25 MG TABLET 100 MG PO (09:10)
--- NOTE | 2025-02-25 10:47 | ESPR_ITS ---
<Statement entered by Taran Rodriguez MD - 02/25/25 21:55> No acute overnight events. CIWA improving. Continues on SPIRONOLACTONE, LASIX, PROTONIX and CEFTRIAXONE for SBP prophylaxis. MRCP today showed normal common hepatic and common bile duct. TB and LFTs downtrending. Hgb stable, pending anemia work-up. Documentation for date of: 02/25/25 Subjective Subjective Interval history: No acute overnight events. No abdominal pain, rated 0/10. Denies N/V/D.. Denies fever, chills, headaches, chest pain, sob, cough, GI or urinary symptoms. Hgb 11.7 and slightly downtrending. EGD was done today with banding of grade 3 esophageal varices. Gastric mucosa erythematous diffusely with stigmata of recent bleeding. Patient on clear liquid diet. Exam Vital Signs Temp Pulse Resp BP Pulse Ox O2 Del Method O2 Flow Rate 97.6 F 72 18 126/72 95 Room Air 3 02/25/25 08:00 02/25/25 09:10 02/25/25 08:00 02/25/25 09:10 02/25/25 08:00 02/25/25 08:00 02/24/25 19:40 Narrative Exam General: A/O x3, no acute distress Eyes: PERRL, EOMI. icteric, vision grossly intact. Ears: No ear pain, no ear discharge, Hearing grossly intact. Nose: No nasal discharge. Mouth/Throat: Moist mucous membranes, poor dentation, no redness, no lesions. Neck: Neck supple, non-tender, no cervical lymphadenopathy. Lungs: Clear SAV to auscultation and percussion, No accessory muscle use. Cardio: Normal S1/S2, regular rhythm, no murmurs, no JVD Abdomen: Soft, but distended, non-tender. no palpable masses, peristalsis present, no guarding or rebound. Extremities: Symmetrical, no significant deformities, 2+ pitting edema extending up to the hip, non-tender, peripheral pulses difficult to palpate due to edema. Skin: No rashes, no lesions, warm to touch. Neuro: No focal neurological deficits. motor and sensory intact Psych: Cooperative, appropriate mood and effect. Objective Labs 02/26/25 05:33 02/26/25 05:33 Labs: Laboratory Results - last 24 hr 02/25/25 05:22 WBC 5.6 RBC 3.15 L Hgb 11.5 L Hct 33.0 L MCV 105 H MCH 36.5 H MCHC 34.8 RDW Std Deviation 68.0 H Plt Count 43 L Neut % (Auto) 62 Lymph % (Auto) 20 [place] % (Auto) 13 H Eos % (Auto) 4 Baso % (Auto) 1 Neut # (Auto) 3.5 Lymph # (Auto) 1.1 [place] # (Auto) 0.7 Eos # (Auto) 0.2 Baso # (Auto) 0.1 Immature Gran # (Auto) 0.03 H Absolute Nucleated RBC 0.00 Immature Gran % 1 H Nucleated RBC % 0 PT 20.9 H INR 2.0 H APTT 44.2 H Sodium 138 Potassium 3.6 Chloride 107 Carbon Dioxide 25.0 Anion Gap 6 L BUN 7 L Creatinine 0.6 Estim Creat Clear Calc 120.3 eGFR > 60 BUN/Creatinine Ratio 12 Glucose 80 Calculated Osmolality 272 L Calcium 7.6 L Corrected Calcium 9.2 Magnesium 1.7 Total Bilirubin 9.4 H AST 73 H ALT 29 Alkaline Phosphatase 126 H D Total Protein 6.6 Albumin 2.0 L Globulin 4.6 H Albumin/Globulin Ratio 0.4 L Misc Test Result Platelets confirmed Quality Measures Quality Measures none Assessment & Plan Assessment Current Active Medications: Generic Name Dose Route Start Last Admin Trade Name Freq PRN Reason Stop Dose Admin Acetaminophen 650 mg 02/24/25 00:34 Acetaminophen 325 Mg Tablet PO 03/26/25 00:33 Q6H PRN Fever >100.4 Acetaminophen 650 mg 02/24/25 00:34 Acetaminophen 325 Mg Tablet PO 03/26/25 00:33 Q6H PRN PAIN SCALE 1-3 (mild Hydrocodone Bitart/Acetaminophen 1 tab 02/24/25 00:34 Hydrocodone/Apap 5/325 Tablet PO 03/01/25 00:33 Q4HR PRN PAIN SCALE 4-6 (Moderate Folic Acid 1 mg 02/24/25 09:00 02/25/25 09:07 Folic Acid 1 Mg Tablet PO 03/01/25 08:59 1 mg BID GIOVANNA Administration Furosemide 40 mg 02/24/25 09:00 02/25/25 09:10 Furosemide 40 Mg Tablet PO 03/26/25 08:59 40 mg QDAY GIOVANNA Administration Ceftriaxone Sodium/Dextrose 1 gm in 50 mls @ 100 mls/hr 02/24/25 00:39 02/25/25 09:08 Rocephin/D5w 1gm Iv Premix IV 03/03/25 00:38 100 mls/hr QDAY GIOVANNA Administration Lorazepam 0.5 mg 02/24/25 00:34 Lorazepam 0.5 Mg Tablet PO 03/01/25 00:33 Q4HR PRN CIWA Score 2-6 Lorazepam 1 mg 02/24/25 00:34 Lorazepam 0.5 Mg Tablet PO 03/01/25 00:33 Q4HR PRN CIWA SCORE 7-11 Lorazepam 2 mg 02/24/25 00:34 Lorazepam 0.5 Mg Tablet PO 03/01/25 00:33 Q4HR PRN CIWA SCORE 12-15 Lorazepam 1 mg 02/25/25 07:56 Lorazepam 2 Mg/Ml Vial IVP 03/02/25 07:55 X1 PRN PRIOR TO MRI Lorazepam 1 mg 02/25/25 08:01 Lorazepam 2 Mg/Ml Vial IVP 03/02/25 08:00 X1 PRN PRIOR TO MRI Ondansetron HCl 4 mg 02/24/25 00:34 Ondansetron Inj 2 Mg/Ml Inj 2 Ml IVP 03/26/25 00:33 Q6H PRN NAUSEA OR VOMITING Protocol Pantoprazole Sodium 40 mg 02/24/25 09:00 02/25/25 09:07 Pantoprazole Inj 40 Mg Vial IVP 03/26/25 08:59 40 mg QDAY GIOVANNA Administration Spironolactone 100 mg 02/24/25 09:00 02/25/25 09:10 Spironolactone 25 Mg Tablet PO 03/26/25 08:59 100 mg QDAY GIOVANNA Administration Thiamine HCl 100 mg 02/24/25 09:00 02/25/25 09:07 Thiamine 100 Mg Tablet PO 03/01/25 08:59 100 mg BID GIOVANNA Administration Plan This is a 64-year-old male with past medical history of alcohol use disorder and cirrhosis was admitted to the hospital 02/24/2025 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 Alcohol associated liver cirrhosis Decompensated liver cirrhosis Hyperbilirubinemia Hypoalbuminemia Transaminitis Coagulopathy Esophageal varices Presenting with 3 days of worsening right upper quadrant pain. History of chronic alcohol use, last drink 3 days prior to admission. Labs significant for elevated INR 1.9, hypoalbuminemia, TB 11, and mildly elevated bated LFTs and ALP. Significant anasarcous on exam. CT abdominal pelvis showed cirrhosis, esophageal varices, moderate ascites, and fluid containing bilateral inguinal hernia. Abdominal ultrasound showed cirrhosis and ascites and some gallbladder wall thickening likely in settings of ascites. Child Flanagan score of 12 points indicating child class C. MELD-Na score of 25 points indicating 14 to 50% estimated 90-day mortality. MRCP was ordered to evaluate biliary function, however was incomplete secondary to agitation. Radiology recommended 2 days washout before repeating MRCP. Pt refused to follow through with HIDA scan 10min into the procedure and the study was abandoned. Remains afebrile, no leukocytosis. He underwent EGD with banding of grade 3 esophageal varices, EGD also showed distal esophagitis. Currently on clear liquids, will advance as tolerated. Not much seen on the CAT scan in the right lower quadrant Pt underwent fiberoptic esophagogastroduodenoscopy on 02/24. Large grade 3 esophageal varices were visualized and two bands placed. Finding of diffuse severely erythematous gastric mucosa with stigmata of recent bleeding. Diffuse gastritis with hyperemia suggestive of portal gastropathy. Hiatal hernia. Normal duodenum. Pain abdomen uncertain etiology in the setting of cirrhotic liver disease due to underlying alcohol esophageal varices minimal ascites Plan: - I&O - Keep patient n.p.o. ? Continue home SPIRONOLACTONE 100 mg daily ? Continue LASIX 40 mg daily ? Continue CEFTRIAXONE 1 g daily for SBP prophylaxis ? Continue PROTONIX BID ? Pending HIDA scan results (pt refused to follow through with the procedure) - Followed by GI Dr Acosta: Might consider doing a fibrotic colonoscopy prior to discharge to further evaluate the right lower quadrant abdominal pain and discomfort. - Complete abstinence from alcohol Chronic Macrocytic Anemia: -Hgb 11.5; MCV 105 Plan: Measure folate cobalamin levels Serum Iron studies No source of blood loss identified by the patient. Alcohol withdrawal Hx of alcohol use disorder Patient has been drinking around 40 beers per day for quite some time. Last drink was around 3 days ago. U-Tox negative for alcohol. CIWA remains low ? Continue CIWA protocol Health maintenance Diet: Clear liquid GI prophylaxis: PROTONIX DVT prophylaxis: SCD Antibiotics: CEFTRIAXONE CODE STATUS: Full code Disposition: Pending HIDA scan, possible surgical consult. Case was discussed with attending physician, Dr. Grover, and senior resident Dr Rodriguez. Buzz Munoz, PGY I Case was discussed with attending physician and senior resident. Taran Rodriguez, PGY II This document was transcribed using voice recognition technology. Minor inaccuracies may be present. Attending Provider Attestation/Addendum I attest that I was physically present for the evaluation, physical examination, lab and imaging review of the patient with the residents. I discussed the case with the residents and agree with the findings and plans of care as documented above. Trina Grover MD
--- NOTE | 2025-02-25 12:43 | ESPR_ITS ---
Documentation for date of: 02/25/25 Subjective Subjective Interval history: Patient evaluated hemoglobin hematocrit 11.5 and 33.0 Exam Vital Signs Temp Pulse Resp BP Pulse Ox O2 Del Method O2 Flow Rate 97.4 F 65 18 127/76 95 Room Air 3 02/25/25 12:00 02/25/25 12:00 02/25/25 12:00 02/25/25 12:00 02/25/25 12:00 02/25/25 12:00 02/24/25 19:40 Objective Labs 02/25/25 05:22 02/25/25 05:22 Labs: Laboratory Results - last 24 hr 02/25/25 05:22 WBC 5.6 RBC 3.15 L Hgb 11.5 L Hct 33.0 L MCV 105 H MCH 36.5 H MCHC 34.8 RDW Std Deviation 68.0 H Plt Count 43 L Neut % (Auto) 62 Lymph % (Auto) 20 [place] % (Auto) 13 H Eos % (Auto) 4 Baso % (Auto) 1 Neut # (Auto) 3.5 Lymph # (Auto) 1.1 [place] # (Auto) 0.7 Eos # (Auto) 0.2 Baso # (Auto) 0.1 Immature Gran # (Auto) 0.03 H Absolute Nucleated RBC 0.00 Immature Gran % 1 H Nucleated RBC % 0 PT 20.9 H INR 2.0 H APTT 44.2 H Sodium 138 Potassium 3.6 Chloride 107 Carbon Dioxide 25.0 Anion Gap 6 L BUN 7 L Creatinine 0.6 Estim Creat Clear Calc 120.3 eGFR > 60 BUN/Creatinine Ratio 12 Glucose 80 Calculated Osmolality 272 L Calcium 7.6 L Corrected Calcium 9.2 Magnesium 1.7 Total Bilirubin 9.4 H AST 73 H ALT 29 Alkaline Phosphatase 126 H D Total Protein 6.6 Albumin 2.0 L Globulin 4.6 H Albumin/Globulin Ratio 0.4 L Misc Test Result Platelets confirmed Impressions Impression: Esophageal variceal bleeding status post band ligation Continue current management Assessment & Plan A&P Narrative # Pain abdomen uncertain etiology in the setting of cirrhotic liver disease due to underlying alcohol esophageal varices minimal ascites And an incomplete HIDA scan Plan Keep patient n.p.o. Consent obtained for fiberoptic esophagogastroduodenoscopy with possible therapeutic intervention under intravenous moderate sedation possible biopsies We will proceed with the procedure Not much seen on the CAT scan in the right lower quadrant Might consider doing a fibrotic colonoscopy prior to discharge to further evaluate the right lower quadrant abdominal pain and discomfort Complete abstinence from the alcohol Thank you very much for the opportunity to participate in the care of this patient Time Spent With Patient Time: Total time spent is greater than 50% in coordination of care (as documented) at patient's floor/unit and/or counseling patient:
--- NOTE | 2025-02-25 14:14 | PC.NURSE ---
Pateint NPO pending MRCP, visitor admitted to giving patient fluids at 1405. One drink of jicama juice. Explained importance of maintaining NPO and possible delay in care due to noncompliance with NPO. notified.
[2025-02-25] MEDS: LORazepam 2 MG/ML VIAL 1 MG IVP (15:31)
[2025-02-26] VITALS (9 sets, daily range): BP systolic 103–138; BP diastolic 63–80; PULSE 59–80; RESP 12–95; TEMP 36.1–36.8; O2SAT 93–96
[2025-02-26 06:19] LABS: INR 2.0 (0.9-1.3); Prothrombin Time 21.2 Seconds (9.0-12.2)
[2025-02-26 06:23] LABS: Basophils # (Auto) 0.1 Thou/mm3 (0.0-0.2); Basophils % (Auto) 1 % (0-2.5); Eosinophils # (Auto) 0.2 Thou/mm3 (0.0-0.5); Eosinophils % (Auto) 4 % (0-10); Hematocrit 33.6 % (41.0-53.0); Hemoglobin 11.7 g/dL (13.5-16.0); Immature Granulocytes Auto 0.02 Thou/mm3 (0.00-0.00); Lymphocytes # (Auto) 1.3 Thou/mm3 (1.0-4.8); Lymphocytes % (Auto) 24 % (10-50); Mean Corpuscular HGB Conc 34.8 g/dl (31.0-37.0); Mean Corpuscular Hemoglobin 36.2 pg (25.0-35.0); Mean Corpuscular Volume 104 fL (80-100); Monocytes # (Auto) 0.7 Thou/mm3 (0.0-0.8); Monocytes % (Auto) 13 % (0-12); Neutrophils # (Auto) 3.2 Thou/mm3 (1.8-7.7); Neutrophils % (Auto) 58 % (37-80); Nucleated Red Blood Cell # 0.00 Thou/mm3 (0.00-0.00); Nucleated Red Blood Cell % 0 /100 WBC (0); RDW Standard Deviation 67.3 fL (35.1-43.9); Red Blood Count 3.23 Miln/mm3 (4.50-5.90); White Blood Count 5.6 Thou/mm3 (3.8-10.6)
[2025-02-26 06:27] LABS: Platelet Count 48 Thou/mm3 (140-440)
[2025-02-26 06:28] LABS: Folate 16.11 ng/mL (>5.38); Slide Review Platelets confirmed; Vitamin B12 > 2000 pg/mL (211-911)
[2025-02-26 06:40] LABS: Iron 85 mcg/dL (65-175); Percent Iron Saturation 49 % (20-55); Total Iron Binding Capacity 173 mcg/dL (250-425); Unsaturated Iron Binding 88 (225-295)
[2025-02-26 06:49] LABS: Alanine Aminotransferase 29 U/L (10-49); Albumin, Serum 1.9 gm/dL (3.4-4.8); Albumin/Globulin Ratio 0.4 (1.2-2.2); Alkaline Phosphatase 120 U/L (46-116); Anion Gap 2 (7-16); Aspartate Amino Transferase 68 U/L (0-34); BUN/Creatinine Ratio 13 Ratio (12-20); Bilirubin,Total 8.0 mg/dL (0.3-1.2); Blood Urea Nitrogen 8 mg/dL (9-23); Calcium 7.5 mg/dL (8.3-10.6); Calcium (Corrected) 9.2 mg/dL (8.5-10.1); Carbon Dioxide 25.6 mMol/L (20.0-31.0); Chloride 108 mMol/L (98-107); Creatinine (Component) 0.6 mg/dL (0.6-1.3); Estimated Creatinine Clearance 120.3 mL/min (>60); Globulin 4.5 gm/dL (2.3-3.5); Glucose 82 mg/dL (74-106); Magnesium 1.7 mg/dL (1.6-2.6); Osmolality,Calculated 269 (275-295); Potassium 3.7 mMol/L (3.4-5.1); Sodium 136 mMol/L (136-145); Total Protein 6.4 gm/dL (5.7-8.2); eGFR > 60 See Note
[2025-02-26] MEDS: SPIRONOLACTONE 25 MG TABLET 100 MG PO (09:03)
[2025-02-26] MEDS: FOLIC ACID 1 MG TABLET PO ×2 (09:04→20:35)
[2025-02-26] MEDS: THIAMINE 100 MG TABLET PO ×2 (09:04→20:35)
[2025-02-26] MEDS: FERROUS SULF 325 MG TABLET PO (09:04)
[2025-02-26] MEDS: cefTRIAXone/D5w 1gm IV premix 1 GM/50 ML BAG IV (09:05)
--- NOTE | 2025-02-26 13:45 | ESPR_ITS ---
<Statement entered by Taran Rodriguez MD - 02/26/25 20:48> In summary: 64-year-old male with alcohol-related liver cirrhosis, admitted for decompensated liver cirrhosis with hyperbilirubinemia. HIDA scan was incomplete secondary to agitation. MRCP showed no evidence of biliary obstruction, cirrhosis and ascites were noted. EGD showed grade 3 varices and he underwent banding. LFTs and CBC overall downtrending, however TB remains elevated at 8.0. GI planning on colonoscopy tomorrow to evaluate for right lower abdominal pain and discomfort. Currently on clear liquid and GOLYTELY. Hgb stable around 11, no signs of GI bleed. Iron stores are low, B12 and folate are WNL. Anemia likely secondary to iron deficiency and cirrhosis. We started iron supplements daily. Case was discussed with attending physician. Taran Rodriugez DO PGY II This document was transcribed using voice recognition technology. Minor inaccuracies may be present. Documentation for date of: 02/26/25 Subjective Subjective Interval history: No acute overnight events. Pt sitting comfortobaly in his bed and consuming breakfast. No abdominal pain, rated 0/10. Denies N/V/D. Denies fever, chills, headaches, chest pain, sob, cough, GI or urinary symptoms. Nurse translated [place] for the patient. Hgb 11.7 and stable during the past three days at hospital. Dr Acosta is going to perform colonoscopy tomorrow. Exam Vital Signs Temp Pulse Resp BP Pulse Ox O2 Del Method O2 Flow Rate 97.2 F 75 12 138/80 H 96 Room Air 3 02/26/25 12:02/26/25 12:02/26/25 12:02/26/25 12:02/26/25 12:02/26/25 12:02/24/25 19:40 Narrative Exam General: A/O x3, no acute distress Eyes: PERRL, EOMI. icteric, vision grossly intact. Ears: No ear pain, no ear discharge, Hearing grossly intact. Nose: No nasal discharge. Mouth/Throat: Moist mucous membranes, poor dentation, no redness, no lesions. Neck: Neck supple, non-tender, no cervical lymphadenopathy. Lungs: Clear SAV to auscultation and percussion, No accessory muscle use. Cardio: Normal S1/S2, regular rhythm, no murmurs, no JVD Abdomen: Soft, but distended, non-tender. no palpable masses, peristalsis present, no guarding or rebound. Extremities: Symmetrical, no significant deformities, 2+ pitting edema extending up to the hip, non-tender, peripheral pulses difficult to palpate due to edema. Skin: No rashes, no lesions, warm to touch. Neuro: No focal neurological deficits. motor and sensory intact Psych: Cooperative, appropriate mood and effect. Objective Labs 02/27/25 05:41 02/27/25 05:41 Labs: Laboratory Results - last 24 hr 02/26/25 05:33 WBC 5.6 RBC 3.23 L Hgb 11.7 L Hct 33.6 L MCV 104 H MCH 36.2 H MCHC 34.8 RDW Std Deviation 67.3 H Plt Count 48 L Neut % (Auto) 58 Lymph % (Auto) 24 [place] % (Auto) 13 H Eos % (Auto) 4 Baso % (Auto) 1 Neut # (Auto) 3.2 Lymph # (Auto) 1.3 [place] # (Auto) 0.7 Eos # (Auto) 0.2 Baso # (Auto) 0.1 Immature Gran # (Auto) 0.02 H Absolute Nucleated RBC 0.00 Immature Gran % 0 Nucleated RBC % 0 PT 21.2 H INR 2.0 H Sodium 136 Potassium 3.7 Chloride 108 H Carbon Dioxide 25.6 Anion Gap 2 L BUN 8 L Creatinine 0.6 Estim Creat Clear Calc 120.3 eGFR > 60 BUN/Creatinine Ratio 13 Glucose 82 Calculated Osmolality 269 L Calcium 7.5 L Corrected Calcium 9.2 Magnesium 1.7 Iron 85 TIBC 173 L Iron Saturation 49 Unsat Iron Binding 88 L Total Bilirubin 8.0 H D AST 68 H ALT 29 Alkaline Phosphatase 120 H Total Protein 6.4 Albumin 1.9 L Globulin 4.5 H Albumin/Globulin Ratio 0.4 L Vitamin B12 > 2000 H Folate 16.11 Misc Test Result Platelets confirmed Quality Measures Quality Measures none Assessment & Plan Assessment Current Active Medications: Generic Name Dose Route Start Last Admin Trade Name Freq PRN Reason Stop Dose Admin Acetaminophen 650 mg 02/24/25 00:34 Acetaminophen 325 Mg Tablet PO 03/26/25 00:33 Q6H PRN Fever >100.4 Acetaminophen 650 mg 02/24/25 00:34 Acetaminophen 325 Mg Tablet PO 03/26/25 00:33 Q6H PRN PAIN SCALE 1-3 (mild Hydrocodone Bitart/Acetaminophen 1 tab 02/24/25 00:34 Hydrocodone/Apap 5/325 Tablet PO 03/01/25 00:33 Q4HR PRN PAIN SCALE 4-6 (Moderate Ferrous Sulfate 325 mg 02/26/25 08:30 02/26/25 09:29 Ferrous Sulf 325 Mg Tablet PO 03/28/25 08:29 Not Given QOD GIOVANNA Folic Acid 1 mg 02/24/25 09:00 02/26/25 09:04 Folic Acid 1 Mg Tablet PO 03/01/25 08:59 1 mg BID GIOVANNA Administration Furosemide 40 mg 02/24/25 09:00 02/26/25 09:04 Furosemide 40 Mg Tablet PO 03/26/25 08:59 40 mg QDAY GIOVANNA Administration Ceftriaxone Sodium/Dextrose 1 gm in 50 mls @ 100 mls/hr 02/24/25 00:39 02/26/25 09:05 Rocephin/D5w 1gm Iv Premix IV 03/03/25 00:38 100 mls/hr QDAY GIOVANNA Administration Lorazepam 0.5 mg 02/24/25 00:34 Lorazepam 0.5 Mg Tablet PO 03/01/25 00:33 Q4HR PRN CIWA Score 2-6 Lorazepam 1 mg 02/24/25 00:34 Lorazepam 0.5 Mg Tablet PO 03/01/25 00:33 Q4HR PRN CIWA SCORE 7-11 Lorazepam 2 mg 02/24/25 00:34 Lorazepam 0.5 Mg Tablet PO 03/01/25 00:33 Q4HR PRN CIWA SCORE 12-15 Lorazepam 1 mg 02/25/25 08:01 Lorazepam 2 Mg/Ml Vial IVP 03/02/25 08:00 X1 PRN PRIOR TO MRI Ondansetron HCl 4 mg 02/24/25 00:34 Ondansetron Inj 2 Mg/Ml Inj 2 Ml IVP 03/26/25 00:33 Q6H PRN NAUSEA OR VOMITING Protocol Pantoprazole Sodium 40 mg 02/24/25 09:00 02/26/25 09:05 Pantoprazole Inj 40 Mg Vial IVP 03/26/25 08:59 40 mg QDAY GIOVANNA Administration Spironolactone 100 mg 02/24/25 09:00 02/26/25 09:03 Spironolactone 25 Mg Tablet PO 03/26/25 08:59 100 mg QDAY GIOVANNA Administration Thiamine HCl 100 mg 02/24/25 09:00 02/26/25 09:04 Thiamine 100 Mg Tablet PO 03/01/25 08:59 100 mg BID GIOVANNA Administration Plan This is a 64-year-old male with past medical history of alcohol use disorder and cirrhosis was admitted to the hospital 02/24/2025 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 Alcohol associated liver cirrhosis Decompensated liver cirrhosis Hyperbilirubinemia Hypoalbuminemia Transaminitis Coagulopathy Esophageal varices Presenting with 3 days of worsening right upper quadrant pain. History of chronic alcohol use, last drink 3 days prior to admission. Labs significant for elevated INR 1.9, hypoalbuminemia, TB 11, and mildly elevated bated LFTs and ALP. Significant anasarcous on exam. CT abdominal pelvis showed cirrhosis, esophageal varices, moderate ascites, and fluid containing bilateral inguinal hernia. Abdominal ultrasound showed cirrhosis and ascites and some gallbladder wall thickening likely in settings of ascites. Child Flanagan score of 12 points indicating child class C. MELD-Na score of 25 points indicating 14 to 50% estimated 90-day mortality. MRCP was ordered to evaluate biliary function, however was incomplete secondary to agitation. Radiology recommended 2 days washout before repeating MRCP. Pt refused to follow through with HIDA scan 10min into the procedure and the study was abandoned. Remains afebrile, no leukocytosis. He underwent EGD with banding of grade 3 esophageal varices, EGD also showed distal esophagitis. Currently on clear liquids, will advance as tolerated. Not much seen on the CAT scan in the right lower quadrant Pt underwent fiberoptic esophagogastroduodenoscopy on 02/24. Large grade 3 esophageal varices were visualized and two bands placed. Finding of diffuse severely erythematous gastric mucosa with stigmata of recent bleeding. Diffuse gastritis with hyperemia suggestive of portal gastropathy. Hiatal hernia. Normal duodenum. Pain abdomen uncertain etiology in the setting of cirrhotic liver disease due to underlying alcohol esophageal varices minimal ascites T-bili 11, 9.2, 9.4, 8.0 (H)(02/26) AST 116, 87, 73, 68 (02/26) ALT 29 Plan: - I&O - Keep patient n.p.o. ? Continue home SPIRONOLACTONE 100 mg daily ? Continue LASIX 40 mg daily ? Continue CEFTRIAXONE 1 g daily for SBP prophylaxis ? Continue PROTONIX BID ? Pending HIDA scan results (pt refused to follow through with the procedure) - Followed by GI Dr Acosta: Going to perform a fibrotic colonoscopy 02/27 prior to discharge to further evaluate the right lower quadrant abdominal pain and discomfort. - Complete abstinence from alcohol Chronic Macrocytic Anemia: -Ddx anemia of chronic dz -Hgb 11.5; MCV 105 (02/25) Hgb 11.7; MCV 104 (02/26) -folate 16.11 wnl and vitB12 >2000 (H)(02/26) -serum iron 85 and iron saturation 49 wnl; TIBC 88 (L)(02/26) No source of blood loss identified by the patient. Alcohol withdrawal Hx of alcohol use disorder Patient has been drinking around 40 beers per day for quite some time. Last drink was around 3 days ago. U-Tox negative for alcohol. CIWA remains low ? Continue CIWA protocol Health maintenance Diet: Clear liquid GI prophylaxis: PROTONIX DVT prophylaxis: SCD Antibiotics: CEFTRIAXONE CODE STATUS: Full code Disposition: Pending HIDA scan, possible surgical consult. Case was discussed with attending physician, Dr. Grover, and senior resident Dr Rodriguez. Buzz Munoz DO PGY I Case was discussed with attending physician and senior resident. Taran Rodriguez, PGY II This document was transcribed using voice recognition technology. Minor inaccuracies may be present. Attending Provider Attestation/Addendum I attest that I was physically present for the evaluation, physical examination, lab and imaging review of the patient with the residents. I discussed the case with the residents and agree with the findings and plans of care as documented above. Trina Grover MD
[2025-02-26] MEDS: NA SU/NAHCO3/KC/PEG (Golytely) 4,000 ML BTL 4000 ML PO (14:49)
--- NOTE | 2025-02-26 15:39 | PC.SS ---
Patient is alert/oriented. Patient is [place] speaking only. SS used film editor for discussion. Patient states he resides with a friend @ [address], [address] Patient is independent with ADL's. He states he works and drives. Patient states he's been drinking alcohol for 40 years. Patient states he drinks with family. He doesn't plan on stopping. He's not interested at this time in any alcohol rehab resources. SS provided a packet for substance abuse resources. Patient states his sister is his alt medical decision maker, Gemini, . PCP: Dr. Bursn @ [facility]. Patient states his niece, Argelia, will be picking up patient at the time of discharge. Dc plan: return home transportation: home alt medical decision maker: Gemini, sister,
[2025-02-26] MEDS: ACETAMINOPHEN 325 MG TABLET 650 MG PO (20:34)
--- NOTE | 2025-02-26 20:51 | ESPR_ITS ---
Documentation for date of: 02/26/25 Subjective Subjective Interval history: Patient was scheduled for a colonoscopy but he is not clear Additional GoLytely colonoscopy rescheduled for tomorrow Exam Vital Signs Temp Pulse Resp BP Pulse Ox O2 Del Method O2 Flow Rate 98.0 F 73 16 118/74 94 L Room Air 3 02/26/25 16:00 02/26/25 16:00 02/26/25 16:00 02/26/25 16:00 02/26/25 16:00 02/26/25 16:00 02/24/25 19:40 Objective Labs 02/26/25 05:33 02/26/25 05:33 Labs: Laboratory Results - last 24 hr 02/26/25 05:33 WBC 5.6 RBC 3.23 L Hgb 11.7 L Hct 33.6 L MCV 104 H MCH 36.2 H MCHC 34.8 RDW Std Deviation 67.3 H Plt Count 48 L Neut % (Auto) 58 Lymph % (Auto) 24 [place] % (Auto) 13 H Eos % (Auto) 4 Baso % (Auto) 1 Neut # (Auto) 3.2 Lymph # (Auto) 1.3 [place] # (Auto) 0.7 Eos # (Auto) 0.2 Baso # (Auto) 0.1 Immature Gran # (Auto) 0.02 H Absolute Nucleated RBC 0.00 Immature Gran % 0 Nucleated RBC % 0 PT 21.2 H INR 2.0 H Sodium 136 Potassium 3.7 Chloride 108 H Carbon Dioxide 25.6 Anion Gap 2 L BUN 8 L Creatinine 0.6 Estim Creat Clear Calc 120.3 eGFR > 60 BUN/Creatinine Ratio 13 Glucose 82 Calculated Osmolality 269 L Calcium 7.5 L Corrected Calcium 9.2 Magnesium 1.7 Iron 85 TIBC 173 L Iron Saturation 49 Unsat Iron Binding 88 L Total Bilirubin 8.0 H D AST 68 H ALT 29 Alkaline Phosphatase 120 H Total Protein 6.4 Albumin 1.9 L Globulin 4.5 H Albumin/Globulin Ratio 0.4 L Vitamin B12 > 2000 H Folate 16.11 Misc Test Result Platelets confirmed Impressions Impression: Status post band ligation of the esophageal varices hypertensive portal gastropathy Pain abdomen Further evaluation via colonoscopy GoLytely prep in progress Assessment & Plan A&P Narrative # Pain abdomen uncertain etiology in the setting of cirrhotic liver disease due to underlying alcohol esophageal varices minimal ascites And an incomplete HIDA scan Plan Keep patient n.p.o. Consent obtained for fiberoptic esophagogastroduodenoscopy with possible therapeutic intervention under intravenous moderate sedation possible biopsies We will proceed with the procedure Not much seen on the CAT scan in the right lower quadrant Might consider doing a fibrotic colonoscopy prior to discharge to further evaluate the right lower quadrant abdominal pain and discomfort Complete abstinence from the alcohol Thank you very much for the opportunity to participate in the care of this patient Time Spent With Patient Time: Total time spent is greater than 50% in coordination of care (as documented) at patient's floor/unit and/or counseling patient:
[2025-02-27] VITALS (16 sets, daily range): BP systolic 107–136; BP diastolic 56–91; PULSE 68–96; RESP 10–96; TEMP 36.1–36.8; O2SAT 91–97; BMI 26.1
[2025-02-27 06:03] LABS: Basophils # (Auto) 0.1 Thou/mm3 (0.0-0.2); Basophils % (Auto) 1 % (0-2.5); Eosinophils # (Auto) 0.2 Thou/mm3 (0.0-0.5); Eosinophils % (Auto) 5 % (0-10); Hematocrit 35.6 % (41.0-53.0); Hemoglobin 12.4 g/dL (13.5-16.0); Immature Granulocytes Auto 0.03 Thou/mm3 (0.00-0.00); Lymphocytes # (Auto) 1.3 Thou/mm3 (1.0-4.8); Lymphocytes % (Auto) 27 % (10-50); Mean Corpuscular HGB Conc 34.8 g/dl (31.0-37.0); Mean Corpuscular Hemoglobin 37.0 pg (25.0-35.0); Mean Corpuscular Volume 106 fL (80-100); Monocytes # (Auto) 0.7 Thou/mm3 (0.0-0.8); Monocytes % (Auto) 14 % (0-12); Neutrophils # (Auto) 2.5 Thou/mm3 (1.8-7.7); Neutrophils % (Auto) 52 % (37-80); Nucleated Red Blood Cell # 0.00 Thou/mm3 (0.00-0.00); Nucleated Red Blood Cell % 0 /100 WBC (0); RDW Standard Deviation 68.6 fL (35.1-43.9); Red Blood Count 3.35 Miln/mm3 (4.50-5.90); White Blood Count 4.7 Thou/mm3 (3.8-10.6)
[2025-02-27 06:13] LABS: Platelet Count 43 Thou/mm3 (140-440)
[2025-02-27 06:26] LABS: Alanine Aminotransferase 28 U/L (10-49); Albumin, Serum 1.9 gm/dL (3.4-4.8); Albumin/Globulin Ratio 0.4 (1.2-2.2); Alkaline Phosphatase 115 U/L (46-116); Anion Gap 7 (7-16); Aspartate Amino Transferase 70 U/L (0-34); BUN/Creatinine Ratio 10 Ratio (12-20); Bilirubin,Total 8.9 mg/dL (0.3-1.2); Blood Urea Nitrogen 6 mg/dL (9-23); Calcium 7.5 mg/dL (8.3-10.6); Calcium (Corrected) 9.2 mg/dL (8.5-10.1); Carbon Dioxide 26.9 mMol/L (20.0-31.0); Chloride 105 mMol/L (98-107); Creatinine (Component) 0.6 mg/dL (0.6-1.3); Estimated Creatinine Clearance 120.3 mL/min (>60); Globulin 4.6 gm/dL (2.3-3.5); Glucose 83 mg/dL (74-106); Magnesium 1.7 mg/dL (1.6-2.6); Osmolality,Calculated 274 (275-295); Phosphorous 3.2 mg/dL (2.4-5.1); Potassium 3.7 mMol/L (3.4-5.1); Sodium 139 mMol/L (136-145); Total Protein 6.5 gm/dL (5.7-8.2); eGFR > 60 See Note
[2025-02-27 06:32] LABS: Slide Review Platelets confirmed
[2025-02-27 07:24] LABS: INR 2.1 (0.9-1.3); Prothrombin Time 21.8 Seconds (9.0-12.2)
--- NOTE | 2025-02-27 07:24 | PD.RESPRO ---
Documentation for date of: 02/27/25 Subjective Subjective Interval history: No acute overnight events. Pt sitting comfortobaly in his bed. Denies abdominal pain, tenderness, chest pain, headaches, or pain in any other area. Denies N/V/D. Denies fever, chills, headaches, chest pain, sob, cough, GI or urinary symptoms. Normal BM, last earlier in the morning and no issues. No blood in stool. Phone translation service for Estonian was utilized during the interview. Hgb 12.4 and trending up for the past 3d. Dr Acosta has plans to perform colonoscopy today. Exam Vital Signs Temp Pulse Resp BP Pulse Ox O2 Del Method O2 Flow Rate 97.0 F 69 16 116/68 95 Room Air 3 02/27/25 04:00 02/27/25 04:00 02/27/25 04:00 02/27/25 04:00 02/27/25 04:00 02/27/25 04:00 02/24/25 19:40 Narrative Exam General: A/O x3, no acute distress Eyes: PERRL, EOMI. icteric, vision grossly intact. Ears: No ear pain, no ear discharge, Hearing grossly intact. Nose: No nasal discharge. Mouth/Throat: Moist mucous membranes, poor dentation, no redness, no lesions. Neck: Neck supple, non-tender, no cervical lymphadenopathy. Lungs: Clear SAV to auscultation and percussion, No accessory muscle use. Cardio: Normal S1/S2, regular rhythm, no murmurs, no JVD Abdomen: Soft, but distended, non-tender. no palpable masses, peristalsis present, no guarding or rebound. Mild shifting dullness. Percussion dull x4 quadrants. Extremities: Symmetrical, no significant deformities, 2+ pitting edema extending up to the hip, non-tender, peripheral pulses difficult to palpate due to edema. Skin: No rashes, no lesions, warm to touch. Neuro: No focal neurological deficits. motor and sensory intact Psych: Cooperative, appropriate mood and effect. Objective Labs 02/27/25 05:41 02/27/25 05:41 Labs: Laboratory Results - last 24 hr 02/27/25 05:41 WBC 4.7 RBC 3.35 L Hgb 12.4 L Hct 35.6 L MCV 106 H MCH 37.0 H MCHC 34.8 RDW Std Deviation 68.6 H Plt Count 43 L Neut % (Auto) 52 Lymph % (Auto) 27 [place] % (Auto) 14 H Eos % (Auto) 5 Baso % (Auto) 1 Neut # (Auto) 2.5 Lymph # (Auto) 1.3 [place] # (Auto) 0.7 Eos # (Auto) 0.2 Baso # (Auto) 0.1 Immature Gran # (Auto) 0.03 H Absolute Nucleated RBC 0.00 Immature Gran % 1 H Nucleated RBC % 0 Sodium 139 Potassium 3.7 Chloride 105 Carbon Dioxide 26.9 Anion Gap 7 BUN 6 L Creatinine 0.6 Estim Creat Clear Calc 120.3 eGFR > 60 BUN/Creatinine Ratio 10 L Glucose 83 Calculated Osmolality 274 L Calcium 7.5 L Corrected Calcium 9.2 Phosphorus 3.2 Magnesium 1.7 Total Bilirubin 8.9 H D AST 70 H ALT 28 Alkaline Phosphatase 115 Total Protein 6.5 Albumin 1.9 L Globulin 4.6 H Albumin/Globulin Ratio 0.4 L Misc Test Result Platelets confirmed Quality Measures Quality Measures none Assessment & Plan Assessment Current Active Medications: Generic Name Dose Route Start Last Admin Trade Name Freq PRN Reason Stop Dose Admin Acetaminophen 650 mg 02/24/25 00:34 Acetaminophen 325 Mg Tablet PO 03/26/25 00:33 Q6H PRN Fever >100.4 Acetaminophen 650 mg 02/24/25 00:34 02/26/25 20:34 Acetaminophen 325 Mg Tablet PO 03/26/25 00:33 650 mg Q6H PRN Administration PAIN SCALE 1-3 (mild Hydrocodone Bitart/Acetaminophen 1 tab 02/24/25 00:34 Hydrocodone/Apap 5/325 Tablet PO 03/01/25 00:33 Q4HR PRN PAIN SCALE 4-6 (Moderate Ferrous Sulfate 325 mg 02/26/25 08:30 02/26/25 09:29 Ferrous Sulf 325 Mg Tablet PO 03/28/25 08:29 Not Given QOD GIOVANNA Folic Acid 1 mg 02/24/25 09:00 02/26/25 20:35 Folic Acid 1 Mg Tablet PO 03/01/25 08:59 1 mg BID GIOVANNA Administration Furosemide 40 mg 02/24/25 09:00 02/26/25 09:04 Furosemide 40 Mg Tablet PO 03/26/25 08:59 40 mg QDAY GIOVANNA Administration Ceftriaxone Sodium/Dextrose 1 gm in 50 mls @ 100 mls/hr 02/24/25 00:39 02/26/25 09:05 Rocephin/D5w 1gm Iv Premix IV 03/03/25 00:38 100 mls/hr QDAY GIOVANNA Administration Lorazepam 0.5 mg 02/24/25 00:34 Lorazepam 0.5 Mg Tablet PO 03/01/25 00:33 Q4HR PRN CIWA Score 2-6 Lorazepam 1 mg 02/24/25 00:34 Lorazepam 0.5 Mg Tablet PO 03/01/25 00:33 Q4HR PRN CIWA SCORE 7-11 Lorazepam 2 mg 02/24/25 00:34 Lorazepam 0.5 Mg Tablet PO 03/01/25 00:33 Q4HR PRN CIWA SCORE 12-15 Lorazepam 1 mg 02/25/25 08:01 Lorazepam 2 Mg/Ml Vial IVP 03/02/25 08:00 X1 PRN PRIOR TO MRI Ondansetron HCl 4 mg 02/24/25 00:34 Ondansetron Inj 2 Mg/Ml Inj 2 Ml IVP 03/26/25 00:33 Q6H PRN NAUSEA OR VOMITING Protocol Pantoprazole Sodium 40 mg 02/24/25 09:00 02/26/25 09:05 Pantoprazole Inj 40 Mg Vial IVP 03/26/25 08:59 40 mg QDAY GIOVANNA Administration Spironolactone 100 mg 02/24/25 09:00 02/26/25 09:03 Spironolactone 25 Mg Tablet PO 03/26/25 08:59 100 mg QDAY GIOVANNA Administration Thiamine HCl 100 mg 02/24/25 09:00 02/26/25 20:35 Thiamine 100 Mg Tablet PO 03/01/25 08:59 100 mg BID GIOVANNA Administration Plan This is a 64-year-old male with past medical history of alcohol use disorder and cirrhosis was admitted to the hospital 02/24/2025 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 Alcohol associated liver cirrhosis Decompensated liver cirrhosis Hyperbilirubinemia Hypoalbuminemia Transaminitis Coagulopathy Esophageal varices Presenting with 3 days of worsening right upper quadrant pain. History of chronic alcohol use, last drink 3 days prior to admission. Labs significant for elevated INR 1.9, hypoalbuminemia, TB 11, and mildly elevated bated LFTs and ALP. Significant anasarcous on exam. CT abdominal pelvis showed cirrhosis, esophageal varices, moderate ascites, and fluid containing bilateral inguinal hernia. Abdominal ultrasound showed cirrhosis and ascites and some gallbladder wall thickening likely in settings of ascites. Child Flanagan score of 12 points indicating child class C. MELD-Na score of 25 points indicating 14 to 50% estimated 90-day mortality. MRCP was ordered to evaluate biliary function, however was incomplete secondary to agitation. Radiology recommended 2 days washout before repeating MRCP. Pt refused to follow through with HIDA scan 10min into the procedure and the study was abandoned. Remains afebrile, no leukocytosis. He underwent EGD with banding of grade 3 esophageal varices, EGD also showed distal esophagitis. Currently on clear liquids, will advance as tolerated. Not much seen on the CAT scan in the right lower quadrant Pt underwent fiberoptic esophagogastroduodenoscopy on 02/24. Large grade 3 esophageal varices were visualized and two bands placed. Finding of diffuse severely erythematous gastric mucosa with stigmata of recent bleeding. Diffuse gastritis with hyperemia suggestive of portal gastropathy. Hiatal hernia. Normal duodenum. Pain abdomen uncertain etiology in the setting of cirrhotic liver disease due to underlying alcohol esophageal varices minimal ascites T-bili 11, 9.2, 9.4, 8.0, 8.9 (H) (02/27) AST 116, 87, 73, 68, 70, ALT 29, 28 (02/27) PT 21.8 (H), INR 2.1 (H) (02/27) albumen 1.9 (02/27) Plan: - I&O - Keep patient n.p.o. ? Continue home SPIRONOLACTONE 100 mg daily ? Continue LASIX 40 mg daily ? Continue CEFTRIAXONE 1 g daily for SBP prophylaxis ? Continue PROTONIX BID ? Pending HIDA scan results (pt refused to follow through with the procedure) - Followed by GI Dr Acosta: Going to perform a fibrotic colonoscopy 02/27 prior to discharge to further evaluate the right lower quadrant abdominal pain and discomfort. - Complete abstinence from alcohol Chronic Macrocytic Anemia: -Ddx anemia of chronic dz -Hgb 11.5; MCV 105 (/2) Hgb 11.7, 12.4; MCV 104, 106 (02/27) -folate 16.11 wnl and vitB12 >2000 (H)(02/26) -serum iron 85 and iron saturation 49 wnl; TIBC 88 (L)(02/26) No source of blood loss identified by the patient. Alcohol withdrawal Hx of alcohol use disorder Patient has been drinking around 40 beers per day for quite some time. Last drink was around 3 days ago. U-Tox negative for alcohol. CIWA remains low ? Continue CIWA protocol Health maintenance Diet: Clear liquid GI prophylaxis: PROTONIX DVT prophylaxis: SCD Antibiotics: CEFTRIAXONE CODE STATUS: Full code Disposition: Pending HIDA scan, possible surgical consult. Case was discussed with attending physician, Dr. Grover, and senior resident Dr Rodriguez. Buzz Munoz, DO PGY I This document was transcribed using voice recognition technology. Minor inaccuracies may be present. Attending Provider Attestation/Addendum I attest that I was physically present for the evaluation, physical examination, lab and imaging review of the patient with the residents. I discussed the case with the residents and agree with the findings and plans of care as documented above. Trina Grover MD
[2025-02-27] MEDS: cefTRIAXone/D5w 1gm IV premix 1 GM/50 ML BAG IV (08:51)
--- NOTE | 2025-02-27 17:39 | ESDS_ITS ---
<Statement entered by Taran Rodriguez MD - 02/27/25 18:33> In summary: 64-year-old male with alcohol-related liver cirrhosis, admitted for abdominal pain and decompensated liver cirrhosis with hyperbilirubinemia. HIDA scan was incomplete secondary to agitation. MRCP showed no evidence of biliary obstruction, cirrhosis and ascites were noted. Underwent EGD with banding of gra de 3 esophageal varices, other findings included erythematous mucosa of the stomach. Colonoscopy showed hemorrhoids, diverticula of sigmoid colon and descending colon, no evidence of bleed. Abdominal pain has resolved. He was tolerating oral intake without nausea or vomiting, passing regular stool. LFTs continue to downtrend. T. bili remains stable around 8.0. Recommendations: * Follow-up with PCP within 1-2 weeks of discharge. * Discussed options of liver transplant with your PCP. * Continue taking CIPROFLOXACIN 500 mg daily for 2 days to finish SBP prophylaxis. * Continue taking LASIX 40 mg daily. * Continue taking SPIRONOLACTONE 100 mg daily. * Continue taking THIAMINE supplements once daily. * Continue taking FOLIC ACID supplements 1 daily. * Continue taking FERROUS SULFATE 325 mg daily. * Continue taking PANTOPRAZOLE 40 mg twice daily for at least 1 month. * Recommended abstaining from alcohol use. * Continue taking medications as prescribed below. * Return to Emergency Room if symptoms persist, worsen, or new symptoms develop. Case was discussed with attending physician. Taran Rodriguez DO PGY II This document was transcribed using voice recognition technology. Minor inacc uracies may be present. Planned Discharge Date 02/27/25 DS: Providers Provider Date of admission: 02/24/25 00:54 Primary care physician: Shahzad Burns MD Admitting Provider: Jhony Blair MD Attending Provider on Admission: Trina Grover MD Consults: 02/24/25 02:08 Consult to Gastroenterology Routine Comment: Consulting Provider: Betty Acosta Attending Provider on DC: Trina Grover MD Discharging Provider: Trina Grover MD DS: Diagnosis Problem List Completed Was Problem List Reviewed/Reconciled?: Yes Hospital Course Hospital Course Hospital course: Catarino Aggarwal is a 64yo male with PMHx of cirrhosis and alcohol use disorder who presented to the ED c/o 4day hx of abdominal pain on 02/24/2025. Last GI visit was 3yr ago. Patient stated that he drank 4 beers daily on average. Patient stated that he took spironolactone as his one and only medication for LE swelling. Initial labs were relevant for coagulopathy, hyperbilirubinemia, transaminitis, hypoalbuminemia, and UA is positive for bacteria. Pt was admitted for abdominal pain and decompensated liver cirrhosis with hyperbilirubinemia. Pt abdominal pain subsequently resolved. Pt denied N/V/D, or constipation during his stay. LFTs continued to downtrend with T.bili stablizing around 8. IMAGE FINDINGS: -abdomen/pelvis CT showed atelectasis versus pneumonia of right base, cirrhosis, esophageal varices, moderate ascites, and some fluid containing bilateral inguinal hernias. -abdominal ultrasound showed cirrhosis, ascites, and some gallbladder wall thickening. -MRCP was ordered to evaluate biliary function: patent biliary ducts, cirrhosis, and ascites were noted. -HIDA scan was incomplete due to pt refusal to follow through with the study. -EGD: Large grade 3 esophageal varices were visualized and two bands placed. Finding of diffuse severely erythematous gastric mucosa with stigmata of recent bleeding. Diffuse gastritis with hyperemia suggestive of portal gastropathy. Hiatal hernia. Normal duodenum. -Colonoscopy showed hemorrhoids, diverticula of sigmoid colon, and descending colon without evidence of bleed. PATIENT INSTRUCTIONS: * Follow-up with PCP within 1-2 weeks of discharge. * Discussed options of liver transplant with your PCP. * Continue taking CIPROFLOXACIN 500 mg daily for 2 days to finish SBP prophylaxis. * Continue taking LASIX 40 mg daily. * Continue taking SPIRONOLACTONE 100 mg daily. * Continue taking THIAMINE supplements once daily. * Continue taking FOLIC ACID supplements 1 daily. * Continue taking FERROUS SULFATE 325 mg daily. * Continue taking PANTOPRAZOLE 40 mg twice daily for at least 1 month. * Recommended abstaining from alcohol use. * Continue taking medications as prescribed below. * Return to Emergency Room if symptoms persist, worsen, or new symptoms develop. ADMISSION DIAGNOSES: Alcohol associated liver cirrhosis Decompensated liver cirrhosis Hyperbilirubinemia Hypoalbuminemia Transaminitis Coagulopathy Esophageal varices Chronic Macrocytic Anemia: Alcohol withdrawal Hx of alcohol use disorder Case was discussed with attending physician, Dr. Grover, and senior resident Dr Rodriguez. Buzz Munoz DO PGY I Case was discussed with attending physician. Taran Rodriguez DO PGY II This document was transcribed using voice recognition technology. Minor inaccuracies may be present. Status at Discharge Cognitive/behavioral status at discharge: medically stable and safe to be discharged home Time Spent with Patient Time attestation: Total time spent providing and/or coordinating discharge services: Time spent: Greater than 30 minutes Exam Vital Signs Temp Pulse Resp BP Pulse Ox O2 Del Method O2 Flow Rate 97.3 F 69 18 110/63 92 L Room Air 2 02/27/25 16:30 02/27/25 16:30 02/27/25 16:30 02/27/25 16:30 02/27/25 16:30 02/27/25 16:30 02/27/25 16:30 Narrative Exam General: A/O x3, no acute distress Eyes: PERRL, EOMI. icteric, vision grossly intact. Ears: No ear pain, no ear discharge, Hearing grossly intact. Nose: No nasal discharge. Mouth/Throat: Moist mucous membranes, poor dentation, no redness, no lesions. Neck: Neck supple, non-tender, no cervical lymphadenopathy. Lungs: Clear SAV to auscultation and percussion, No accessory muscle use. Cardio: Normal S1/S2, regular rhythm, no murmurs, no JVD Abdomen: Soft, but distended, non-tender. no palpable masses, peristalsis present, no guarding or rebound. Extremities: Symmetrical, no significant deformities, 2+ pitting edema extending up to the hip, non-tender, peripheral pulses difficult to palpate due to edema. Skin: No rashes, no lesions, warm to touch. Neuro: No focal neurological deficits. motor and sensory intact Psych: Cooperative, appropriate mood and effect. Discharge Plan Plan Patient Disposition: HOME (Self Care) Patient condition on transfer: Stable Care Plan Goals: * Follow-up with PCP within 1-2 weeks of discharge. * Discussed options of liver transplant with your PCP. * Continue taking CIPROFLOXACIN 500 mg daily for 2 days to finish SBP prophylaxis. * Continue taking LASIX 40 mg daily. * Continue taking SPIRONOLACTONE 100 mg daily. * Continue taking THIAMINE supplements once daily. * Continue taking FOLIC ACID supplements 1 daily. * Continue taking FERROUS SULFATE 325 mg daily. * Continue taking PANTOPRAZOLE 40 mg twice daily for at least 1 month. * Recommended abstaining from alcohol use. * Continue taking medications as prescribed below. * Return to Emergency Room if symptoms persist, worsen, or new symptoms develop. Prescriptions/Referrals Prescriptions/Med Rec: New furosemide 40 mg Tablet 40 mg PO QDAY Qty: 30 0RF pantoprazole 40 mg Recon Soln 40 mg IVP BID Qty: 60 0RF spironolactone 25 mg Tablet 100 mg PO QDAY Qty: 30 0RF ferrous sulfate 325 mg (65 mg iron) Tablet,Delayed Release (Dr/Ec) 325 mg PO QOD Qty: 30 0RF folic acid 1 mg Tablet 1 mg PO BID Qty: 30 0RF thiamine mononitrate (vit B1) 100 mg Tablet 100 mg PO QDAY Qty: 30 0RF ciprofloxacin HCl 500 mg tablet 500 mg PO QDAY Qty: 2 0RF Continued loratadine 10 mg tablet 10 mg PO DAILY Patient Comments: TAKE 1 TABLET BY MOUTH EVERY DAY FOR 30 DAYS Discontinued tobramycin 0.3 % drops 1 drp Both eyes Q4H Patient Comments: INSTILL 1 DROP INTO AFFECTED EYE 4 TIMES A DAY FOR 3 DAYS Referrals: Shahzad Burns MD [Primary Care Provider] - Patient/Caregiver Discharge Instructions Discharge Activity: activity as tolerated Education Materials: Tests for Liver Disease, Colonoscopy, Upper GI Endoscopy, Treating Cirrhosis, ED Cirrhosis Print Language: Bahamian Stand Alone Forms: Masha Award Info., Patient Portal Info Letter Discharge Order Discharge Orders: Discharge (Routine); Ordered 02/27/25 Ordered By: Taran Rodriguez Quality Discharge Quality Measures VTE prophylaxis Attestestation MD Attestation I attest that I was physically present for the evaluation, physical examination, lab and imaging review of the patient with the residents. I discussed the case with the residents and agree with the findings and plans of care as documented above. Trina Grover MD
== END 2025-02-27 18:40 | disposition home or self-care (01) | DRG 280 ==
LOC: SERX 02-24 00:07 → SERHOLD 02-24 01:01 → S3SX 02-24 02:44
PROVIDERS: Physician Assistant; Specialist; Admitting Provider Internal Medicine; Emergency Provider Emergency Medicine; PCP Family Medicine; Visit Provider Student in an Organized Health Care Education/Training Program
PROC: 06L38CZ Occlusion of Esophageal Vein with Extraluminal Device, Via Natural or Artificial Opening Endoscopic (ICD-10-PCS; CPT 43239; principal; 2025-02-24 13:30)
PROC: 0DJD8ZZ Inspection of Lower Intestinal Tract, Via Natural or Artificial Opening Endoscopic (ICD-10-PCS; CPT 45378; principal; 2025-02-27 13:15)
DX: K70.31 Alcoholic cirrhosis of liver with ascites (principal); I85.11 Secondary esophageal varices with bleeding; F10.139 Alcohol abuse with withdrawal, unspecified; E88.09 Other disorders of plasma-protein metabolism, not elsewhere classified; D68.9 Coagulation defect, unspecified; D53.9 Nutritional anemia, unspecified; K40.20 Bilateral inguinal hernia, without obstruction or gangrene, not specified as recurrent; K64.9 Unspecified hemorrhoids; K44.9 Diaphragmatic hernia without obstruction or gangrene; K57.30 Diverticulosis of large intestine without perforation or abscess without bleeding; K31.89 Other diseases of stomach and duodenum; K76.6 Portal hypertension; Z79.899 Other long term (current) drug therapy; K29.70 Gastritis, unspecified, without bleeding; K20.90 Esophagitis, unspecified without bleeding
CPT/HCPCS: 36415; 74176; 76705; 78227; 80053; 80074; 80307; 80320; 81001; 82042; 82150; 82607; 82746; 82945; 83540; 83550; 83615; 83690; 83735; 84100; 84157; 85025; 85610; 85730; 87070; 87075; 87205; 87811; 89051; 96365; 99291; A4649; A9537; J0696; J1200; J2060; J2250; J2470; J3010; S8037; 74181; A9270; G0480